=== PATIENT | female | born 1985 | race Caucasian/White ===

== ENCOUNTER 2023-09-24 07:11 | Day surgery (SDC) | payer OTHER, SELFPAY ==
[2023-08-27 08:25] VITALS: BMI 31.3
[2023-09-11 09:36] VITALS: BMI 32.4
[2023-09-24 07:47] VITALS: BP 124/99; PULSE 83; RESP 16; TEMP 36.5; O2SAT 100
[2023-09-24] MEDS: LACTATED RINGERS 1,000 ML 150 ML IV CONT (08:05)
--- NOTE | 2023-09-24 08:16 | P.PNAN_ITS ---
Anes - Initial Pre Proc Eval Procedure: Operation Date: 09/24/23 09:00 Proposed Procedures p Colonoscopy - Nicolás Ferris MD Date/Time: 09/24/23 08:16 Surgeon: Nicolás Ferris MD Pre Op Diagnosis: Family History of Colon Cancer Patient Data Age: 37 Gender: F Height: 1.7 m Weight: 96.3 kg Last Vital Signs Temp 36.5 C 09/24/23 07:47 Pulse 83 09/24/23 07:47 Resp 16 09/24/23 07:47 BP 124/99 H 09/24/23 07:47 Pulse Ox 100 09/24/23 07:47 O2 Del Method Room Air 09/24/23 07:47 Allergies Allergy/AdvReac Type Severity Reaction Status Date / Time No Known Allergies Allergy Verified 09/24/23 07:41 Home Medications Medication Instructions Recorded Confirmed Type ibuprofen 800 mg tablet 800 mg PO Q6H PRN pain #20 tabs 08/17/19 09/24/23 Rx Patient hx anesthesia problems: none Family hx anesthesia problems: none Results Review: All pre-operative results and documents have been reviewed as part of the pre-op erative evaluation. [facility] Past Medical History Medical History (Updated 09/24/23 @ 08:16 by Florentin May MD) Obesity Surgical History Surgical History (Updated 09/24/23 @ 08:16 by Florentin May MD) H/O cervical spine surgery History of section History of tubal ligation Social History Social History Smoking status: Never smoker Second hand tobacco smoke exposure: No Alcohol intake: current Drinks per week: 5 Substance use: never Substance use type: does not use Living arrangements: with family Gender identity (if verbalized by the patient): Female Spiritual care concerns: No Anes - Eval Final PreProcedure Day of Procedure 09/24/23 08:16 Patient weight: obese Heart: regular rate and rhythm Lungs: clear to auscultation Airway: Mallampati scale class II Neurological: alert and oriented Last oral intake: >/= 8 hours ASA classification: II Emergent: no Anesthetic plan: proceed Anesthesia type and monitoring: general GIVS and standard monitoring Results Review: All pre-operative results and documents have been reviewed as part of the pre- operative evaluation. Informed Consent: The patient's anesthetic plan and its attendant risks and benefits were discussed with the patient/family/POA. Questions were solicited and answers provided to the satisfaction of the patient/family/POA.
--- NOTE | 2023-09-24 08:19 | P.HP_ITS ---
History of Present Illness History of Present Illness Consent: Risks, benefits, and alternatives have been discussed and questions answered. Patient agrees to proceed with procedure. Chief complaint: Family History of Colon Cancer Narrative: Kassandra Vitale is a 37 year old female presents for screening colonoscopy. Patient has current weight appetite and bowel movements are normal. She denies abdominal pain. Has had no bleeding. Family history is significant that her mother had colon cancer. Patient presents today for screening exam. Review of Systems Review of Systems: Review of systems noncontributory. [facility] Past Medical History Medical History (Updated 09/24/23 @ 08:21 by Nicolás Ferris MD) Obesity Surgical History Surgical History (Updated 09/24/23 @ 08:16 by Florentin May MD) H/O cervical spine surgery History of section History of tubal ligation Social History Social History Smoking status: Never smoker Second hand tobacco smoke exposure: No Alcohol intake: current Drinks per week: 5 Substance use: never Substance use type: does not use Living arrangements: with family Gender identity (if verbalized by the patient): Female Spiritual care concerns: No Meds Home Medications and Allergies Home Medications Medication Instructions Recorded Confirmed Type ibuprofen 800 mg tablet 800 mg PO Q6H PRN pain #20 tabs 08/17/19 09/24/23 Rx Allergies Allergy/AdvReac Type Severity Reaction Status Date / Time No Known Allergies Allergy Verified 09/24/23 07:41 Vital Signs Vital Signs - 24 hr 09/24/23 07:47 Temperature 97.7 F Pulse Rate 83 Respiratory Rate 16 Blood Pressure 124/99 H Pulse Oximetry 100 Oxygen Delivery Room Air Exam Narrative: Physical exam reveals patient to be alert. Vital signs stable. HEENT exam is unremarkable. Patient is anicteric. Lungs are clear to auscultation and percussion. Heart is without murmur or extra sounds. Abdomen bowel sounds are present soft nontender with no hepatosplenomegaly. Digital external rectal exam is normal. Assessment and Plan Assessment and plan (1) Family history of colon cancer in mother: Code(s): Z80.0 - Family history of malignant neoplasm of digestive organs Status: Acute Assessment and Plan: Patient's mother has had colon cancer. Plan for surveillance colonoscopy now in consider this at 5 year intervals.
[2023-09-24 09:19] VITALS: BP 97/45; PULSE 73; RESP 16; O2SAT 100
[2023-09-24 09:29] VITALS: BP 91/51; PULSE 74; RESP 18; O2SAT 100
[2023-09-24 09:39] VITALS: BP 113/73; PULSE 60; RESP 20; O2SAT 100
== END 2023-09-24 09:45 | disposition home or self-care (01) ==
PROVIDERS: PCP Family Medicine; Visit Provider Internal Medicine Gastroenterology
PROC: 0DJD8ZZ Inspection of Lower Intestinal Tract, Via Natural or Artificial Opening Endoscopic (ICD-10-PCS; CPT 45378; principal; 2023-09-24 09:00)
DX: Z80.0 Family history of malignant neoplasm of digestive organs (principal)
CPT/HCPCS: 45378

== ENCOUNTER 2024-04-18 12:21 | Emergency (ER) | payer OTHER, SELFPAY ==
--- NOTE | 2024-04-18 12:29 | ED.SKABFB ---
HPI - Skin/Abscess/Foreign Bdy General Chief complaint: Skin/Abscess/Foreign Body Stated complaint: Rash Time Seen by Provider: 04/18/24 12:31 Source: patient, RN notes reviewed and old records reviewed Mode of arrival: ambulatory Limitations: no limitations History of Present Illness HPI narrative: 38-year-old female presents to the [facility] with a rash to the lower left abdomen for 2 weeks. States that she did a weight loss medication injection which she has been using for 8 weeks. She also visited [place]. Eight recalled annmarie seeds. After eating the Annmarie seeds she did have episode of diarrhea which resolved itself within 3 days. Patient has a mildly raised red itchy area. Not hot to touch. No vesicular areas Patient was concern, at 1st requested blood work states that her primary care provider has recently and is looking for new 1. Discussed that we do not do blood work and we cannot order it. Onset (ago): week(s) (2) Treatments prior to arrival: OTC topical medication and Benadryl Related Data Home Medications Medication Instructions Recorded Confirmed thyroid (pork) 30 mg tablet 30 mg PO DAILY 04/18/24 04/18/24 ([place] Thyroid) Allergies Allergy/AdvReac Type Severity Reaction Status Date / Time No Known Allergies Allergy Verified 04/18/24 12:29 Review of Systems Review of Systems: All systems reviewed & are unremarkable except as noted in HPI and below Constitutional: Constitutional: Reports no additional constitutional complaints Eyes: Eyes: Reports no additional eye complaints ENT: Reports system reviewed and no additional complaints, except as documented Cardiovascular: Cardiovascular: Reports no additional cardiovascular complaints, Denies chest pain and Denies dyspnea Respiratory: Respiratory: Reports no additional respiratory complaints, Denies chest congestion, Denies cough and Denies dyspnea Gastrointestinal: Gastrointestinal: Reports no additional gastrointestinal complaints, Denies abdominal pain, Denies nausea and Denies vomiting Musculoskeletal: Musculoskeletal: Reports no additional musculoskeletal complaints Integumentary/Breasts: Skin/Breast: Reports as per HPI and Reports erythema Neurologic: Reports system reviewed and no additional complaints, except as documented Psychiatric: Psychiatric: Reports no additional psychiatric complaints Allergic/Immunologic: Allergic/Immunologic: Reports no additional allergic/immunologic complaints PMFSH Past Medical History Medical History Obesity Surgical History Surgical History H/O cervical spine surgery History of section History of tubal ligation Social History Social History Smoking status: Never smoker Second hand tobacco smoke exposure: No Alcohol intake: current Drinks per week: 5 Substance use: never Substance use type: does not use Living arrangements: with family Gender identity (if verbalized by the patient): Female Spiritual care concerns: No Comments At the time of my signature, I reviewed and agree with the nursing past medical, surgical, social, and family history. There is no relevant family history pertinent to the patient complaint. Exam Const: General: cooperative, healthy appearing, comfortable, no acute distress, well developed, alert and well nourished Nutritional Appearance: well nourished Orientation/consciousness: patient oriented x3 Limitations: no limitations HENMT: Head: normal to inspection Ears: hearing grossly normal bilaterally and external ears normal Face/Nose/Sinus: Normal external nose present, Normal nares present, Normal nasal mucous membranes and turbinates present, normal facial exam and face symmetric Face and sinus: normal facial exam and face symmetric Eyes: General: appearance nor
[2024-04-18 12:30] VITALS: BP 126/94; PULSE 83; RESP 16; TEMP 36.5; O2SAT 100
== END 2024-04-18 12:48 | disposition home or self-care (01) ==
PROVIDERS: Emergency Provider Nurse Practitioner; PCP Family Medicine
DX: L30.9 Dermatitis, unspecified (principal); E66.9 Obesity, unspecified; Z68.31 Body mass index [BMI] 31.0-31.9, adult
CPT/HCPCS: 99213; G0463

== ENCOUNTER 2024-11-18 08:48 | Outpatient (CLI) | payer OTHER, SELFPAY ==
--- NOTE | ~2024-11-18 | US_ITS ---
US pelvic complete w TV Ordering provider: Tricia Sanchez APRN History: . N92.1 - Excessive and frequent menstruation with irregula... . Comparison: None. Technique: Transabdominal and endovaginal ultrasound of the pelvis (Doppler ultrasound interrogation techniques used as needed for this exam.) FINDINGS: CERVIX: Normal. UTERUS: Measures 9.4x 6.7x 5 cm in length which is within normal limits and is anteverted. No myomet rial masses. scar is noted. ENDOMETRIUM: Normal in thickness measuring 17 mm. (Note: the premenopausal endometrium may measure up to 16 mm when in the secretory phase.) No endometrial masses, cysts or fluid. CUL DE SAC: No free fluid. RIGHT OVARY: Normal in size measuring 2.5x 1.4x 2.8 cm. Normal echotexture. Doppler vascular flow pre sent. LEFT OVARY: Normal in size measuring 2.5x 2.4x 1.9 cm Normal echotexture. Doppler vascular flow prese nt. ADNEXA: Normal. No mass. IMPRESSION: Thickened endometrium. Clinical correlation with the menstrual stage is advised. If warranted further evaluation advised. Otherwise,normal pelvic ultrasound. Reviewed, dictated and finalized at location A. [facility] SEWER IMPRESSION: Thickened endometrium. Clinical correlation with the menstrual stage is advised . If warranted further evaluation advised. Otherwise,normal pelvic ultrasound.
--- OUTSIDE RECORDS SUMMARY | 2024-11-18 09:12 | XMS_ITS | Referral Summary ---
Author Organization [facility] Address [address] [place] [address] Care Team Providers Care Clam Picker Name Role Phone Unavailable Primary Care Provider Unavailabl e Source Comments [facility],non-owned Affiliates and Associated Physician Practices is amultiple site organization consisting of ambulatory clinics and hospital sitesin [place], [place], [place] and [place]. This disclosure is being madepursuant to the Care Everywhere program and may not contain all information available regarding this patient. Last updated 18.[facility] Encounters Date Type Department Care Team Description 10/07/2024 Travel 10/07/2024 1:30 PM DOCK CLERK Office Visit [facility] - Urology [address] [place] [address] [address] [place] [address] Jose Maria Keith MD Kidney stones (Primary Dx); Family history of Bernard syndrome from Last 3 Months Allergies No known active allergies Medications * Be aware that medications may not be up to date on this document. Alwaysverify current medications with the patient. Medication Sig Dispensed Refills Start Date End Date Status cephalexin (Keflex) 500 MG capsule Take 1 (one) capsule by mouth 2 times daily Active Social History Tobacco Use Types Packs/Day Years Used Date Smoking Tobacco: Never Smokeless Tobacco: Never Alcohol Use Standard Drinks/Week Comments Not Currently 0 (1 standard drink = 0.6 oz pur e alcohol) Sex and Gender Information Value Date Recorded Sex Assigned at Not on file Gender Identity Not on file Sexual Orientation Not on file Last Filed Vital Signs Vital Sign Reading Time Taken Comments Blood Pressure 143/101 10/07/2024 1:17 PM DOCK CLERK Pulse 94 10/07/2024 1:16 PM DOCK CLERK Temperature 36.7 C (98.1 F) 10/07/2024 1:16 PM DOCK CLERK Respiratory Rate 18 10/07/2024 1:16 PM DOCK CLERK Oxygen Saturation 100% 10/07/2024 1:16 PM DOCK CLERK Inhaled Oxygen Concentration - - Weight 90.2 kg (198 lb 12.8 oz) 10/07/2024 1:16 PM DOCK CLERK Height 170.2 cm (5' 7 ) 10/07/2024 1:16 PM DOCK CLERK Body Mass Index 31.14 10/07/2024 1:16 PM DOCK CLERK Plan of Treatment Upcoming Encounters Date Type Department Care Team (Late st Contact Info) Description 09/29/2025 8:15 AM DOCK CLERK Office Visit [facility] - Urology [address] [place] [id number] Jose Maria Keith MD [address] [place] [id number] Procedures Procedure Name Priority Date/Time Associated Diagnosis Comments URINALYSIS AUTO - POINT OF CARE (AMB) [facility] Routine 10/07/2024 1:24 PM DOCK CLERK Kidney stones from Last 3 Months Results * URINALYSIS AUTO - POINT OF CARE (AMB) [facility] (10/07/2024 1:24 PM DOCK CLERK) Glucose UA neg [facility] [address] Bilirubin UA POCT neg [facility] [address] Ketones UA POCT neg [facility] [address] Specific [place] UA 1.[address] [facility] [address] Blood Urine POCT neg [facility] [address] pH UA 7.0 [facility] [address] Protein UA neg [facility] [address] Urobilinogen UA -3.5 umol/L [facility] [address] Nitrite UA neg [facility] [address] WBC UA +-15 Angel/ul [facility] [address] Urine URINE / Unknown 10/07/2024 1 :24 PM DOCK CLERK Jose Maria Keith MD LAB - POINT OF CAR E ORDERABLES [facility] [address] [place] [address], [facility] [phone] from Last 3 Months Advance Directives Documents on File Type Date Recorded Patient Inspector Barrel Expl anation Adv Directive/Living Will/POA 01/07/2017
--- OUTSIDE RECORDS SUMMARY | 2024-11-18 09:12 | XMS_ITS | Clinical Summary ---
Author Organization [facility] Care Team Providers Care Strapper Operator Name Role Phone Unavailable Primary Care Provider Unavailabl e Allergies No known active allergies Medications No known medications Active Problems Problem Noted Date Diagnosed Date Elevated antinuclear antibody (MARCELLUS) level Depression Anxiety Immunizations Immunization Administration Dates Next Due TD VACCINE 09/14/2009 Social History Tobacco Use Types Packs/Day Years Used Date Smoking Tobacco: Never Assessed Comments Unknown Sex and Gender Information Value Date Recorded Sex Assigned at Not on file Legal Sex Female 9:00 PM CDT Gender Identity Not on file Sexual Orientation Not on file Plan of Treatment Health Maintenance Due Date Last Done Comments Hepatitis C Virus (HCV) Screening 1984 TdaP Immunization 1984 Hepatitis B Immunization (1 of 3 - 19+ 3-dose series) 12/10/2003 Pap Smear 2005 Cervical Cancer Screening (CCS) 2014 HPV/Cotest 2014 Influenza Immunization (#1) 2024 SARS-COV-2 Immunization ( season) 2024 12/20/2020, 11/22/2020 Respiratory Syncytial Virus (RSV) Immunization (Adult) (1 - 1-dose 75+ series) 12/10/2059 DTaP/Tdap/Td Immunization Discontinued 09/14/2009 Meningococcal Immunization (ACWY) Aged Out No longer eligible based on patient's age to complete this topic Pneumococcal Immunization Combined Aged Out No longer eligible based on patient's age to complete this topic Rotavirus Immunization Aged Out No lo nger eligible based on patient's age to complete this topic
--- OUTSIDE RECORDS SUMMARY | 2024-11-18 09:13 | XMS_ITS | Data Portability ---
Author Organization [facility] [employer], Main Office Address [address] [place] [address] Care Team Providers Care Hospice Volunteer Name Role Phone BLU VILLAFANA Primary Care Provider BLU VILLAFANA Referring Provider Assessment No assessment recorded. Plan of Treatment Reminders Order Date Submit Date Provider Last Modified By Organization Details Last Modified Time Details Appointments None recorded. Lab pap, IG + CT/NG + reflex HR HPV 2022 [facility]23 [facility] (Lab), [address] [place], [address], 3 08:17:14 lipid panel, serum [address] [facility] (Lab), [address] [place], [address], 3 13:02:28 CMP, serum or plasma [address] [facility] (Lab), [address] [place], [address], 3 13:02:33 Referral gynecologis t referral - Last PAP smear about 3 years ago . Please call patient to schedule an appointment . Thank you 2023 024 [email or web address] [facility] [place], [address], [address], [place], [address], 4 08:44:56 gastroenter ologist referral 2022 023 Frederick Jasso MD, [address], [address], [place], [address], 3 17:45:19 Procedures None recorded. Surgeries None recorded. Imaging None recorded. Medication Orders Wegovy 0.25 mg/0.5 mL subcutaneou s pen injector 2023 024 [id number], [address], [place], [id number], 4 16:04:09 phentermine 37.5 mg tablet 2023 024 [facility][id number], [address], [place], [id number], 4 16:21:22 prednisone 20 mg tablet 2023 024 [facility] #[id number], [address], [place], [id number], 4 15:58:06 valacyclovi r 1 gram tablet 2022 023 [facility] #[id number], [address], [place], [id number], 3 09:20:10 Patient TargetsNo targets recorded. Patient Instructions Encounter Date Encounter Id Patient Instructions Last Modified By Organization Details Last Modified Time 05/31/2024 [id number] recheck BP on ow n ; reviewed salty foods to avoid [email or web address] Not available 06/17/2024 15:11:40 Reason for Referral Service Desk Team Lead Referral for Family history of cancer of colon Referring Physician: Blu Nicholson, Family Medicine, Encounter Date: 03/12/2023 [employer] Referral for Sc reening for malignant neoplasm of cervix Last PAP smear about 3 years ago . Please call patient to schedule an appointment. Thank you Referring Physician: Young Abarca, Family Medicine, Encounter Date: 05/31/2024 Results Created Date Observation Date Name Description Value Unit Range Abnormal Flag Note LastModifiedBy Organization Detail LastModifiedTime 04/10/20 21 04/10/2021 urina lysis , dipst ick Leukocytes (reference range: negative enrique/ l) Trace Not Available [address] , [address], [place], [address], 04/10/2021 15:53:43 04/10/20 21 04/10/2021 urina lysis , dipst ick Nitrite (reference rage: negative mg/dl) negati ve Not Available [address] , [address], [place], [address], 04/10/2021 15:53:43 04/10/20 21 04/10/2021 urina lysis , dipst ick Urobilinogen (reference range: 0.2-1 mg/dl) 0.2 Not Available [address] , [address], [place], [address], 04/10/2021 15:53:43 04/10/20 21 04/10/2021 urina lysis , dipst ick Protein (reference range: negative mg/dl) Negati ve Not Available [address] , [address], [place], [address], 04/10/2021 15:53:43 04/10/20 21 04/10/2021 urina lysis , dipst ick pH (reference range: 5-7) 7.0 Not Available [address] , [address], [place], [address], 04/10/2021 15:53:43 04/10/20 21 04/10/2021 urina lysis , dipst ick Blood (reference range: negative Viraj/ l) Negati ve Not Available [address] , [address], [place], [address], 04/10/2021 15:53:43 04/10/20 21 04/10/2021 urina lysis , dipst ick Specific [place] (reference range: 1.005-1.030) 1.020 Not Available [address] , [address], [place], [address], 04/10/2021 15:53:43 04/10/20 21 04/10/2021 urina lysis , dipst ick Ketone (reference range: negative mg/dl) Negati ve Not Available [address] , [address], [place], [address], 04/10/2021 15:53:43 04/10/20 21 04/10/2021 urina lysis , dipst ick Bilirubin (reference range: negative mg/dl) Negati ve Not Available [address] , [address], [place], [address], 04/10/2021 15:53:43 04/10/20 21 04/10/2021 urina lysis , dipst ick Glucose (reference range: negative mg/dl) Negati ve Not Available [address] , [address], [place], [address], 04/10/2021 15:53:43 04/10/20 21 04/10/2021 urina lysis , dipst ick Appearance Clear Not Available [address] , [address], [place], [address], 04/10/2021 15:53:43 04/10/20 21 04/10/2021 urina lysis , dipst ick Color Yellow Not Available [address] , [address], [place], [address], 04/10/2021 15:53:43 08/26/20 21 08/26/2021 urina lysis , dipst ick Leukocytes (reference range: negative enrique/ l) Small Not Available [address] , [address], [place], [address], 08/26/2021 15:08:22 08/26/20 21 08/26/2021 urina lysis , dipst ick Nitrite (reference rage: negative mg/dl) positi ve Not Available [address] , [address], [place], [address], 08/26/2021 15:08:22 08/26/20 21 08/26/2021 urina lysis , dipst ick Urobilinogen (reference range: 0.2-1 mg/dl) 0.2 Not Available [address] , [address], [place], [address], 08/26/2021 15:08:22 08/26/20 21 08/26/2021 urina lysis , dipst ick Protein (reference range: negative mg/dl) Negati ve Not Available [address] , [address], [place], [address], 08/26/2021 15:08:22 08/26/20 21 08/26/2021 urina lysis , dipst ick pH (reference range: 5-7) 7.0 Not Available Z_hr [address] , [address], [place], [address], 08/26/2021 15:08:22 08/26/20 21 08/26/2021 urina lysis , dipst ick Blood (reference range: negative Viraj/ l) Modera te Not Available [address] , [address], [place], [address], 08/26/2021 15:08:22 08/26/20 21 08/26/2021 urina lysis , dipst ick Specific [place] (reference range: 1.005-1.030) 1.015 Not Available [address] , [address], [place], [address], 08/26/2021 15:08:22 08/26/20 21 08/26/2021 urina lysis , dipst ick Ketone (reference range: negative mg/dl) Negati ve Not Available [address] , [address], [place], [address], 08/26/2021 15:08:22 08/26/20 21 08/26/2021 urina lysis , dipst ick Bilirubin (reference range: negative mg/dl) Negati ve Not Available [address] , [address], [place], [address], 08/26/2021 15:08:22 08/26/20 21 08/26/2021 urina lysis , dipst ick Glucose (reference range: negative mg/dl) Negati ve Not Available [address] , [address], [place], [address], 08/26/2021 15:08:22 08/26/20 21 08/26/2021 urina lysis , dipst ick Appearance Clear Not Available [facility] [address], [place], [address], 08/26/2021 15:08:22 08/26/20 21 08/26/2021 urina lysis , dipst ick Color Yellow Not Available [facility], [place], [address], 08/26/2021 15:08:22 03/12/20 23 03/12/2023 LIPID PANEL cholesterol 241 mg/dL 140-19 9 high NIH TAL NSUS RECOM MENDA TION FOR MERRITT STERO L: ADULT CHILD LOW RISK: <200 <170 BORDE RLINE : <200- 239 ----- HIGH RISK: >240 >200 Not Available [facility] (Lab) [address] [place], [address], 03/12/2023 13:02:28 03/12/20 23 03/12/2023 LIPID PANEL triglyceride s 199 mg/dL 0-150 high NIH TAL NSUS REPOR T RECOM MENDA TION FOR TRIGL YCERI SHANE: ADULT CHILD LOW RISK: <150 ----- BODER LINE: 150-1 99 ----- HIGH RISK: >200 ----- Not Available [facility] (Lab) [address] [place], [address], 03/12/2023 13:02:28 03/12/20 23 03/12/2023 LIPID PANEL HDL cholesterol 71 mg/dL 40- Not Available [facility] (Lab) [address] [place], [address], 03/12/2023 13:02:28 03/12/20 23 03/12/2023 LIPID PANEL LDL cholesterol, calculated 130 mg/dL 0-130 NIH TAL NSUS REPOR T RECOM MENDA TIONS FOR LDL: ADULT CHILD LOW RISK <130 <110 (OPTI MAL LDL) <100 ----- JESE RLINE : 130-1 59 ----- HIGH RISK: >160 >130 A TRIGL YCERI DE RESUL T >400 INVAL IDATE S THE CALCU LATIO N FOR LDL FRACT IONAT ION - THE LDL RESUL T WILL NOT BE REPOR MARYCRUZ. Not Available [facility] (Lab) [address] [place], [address], 03/12/2023 13:02:28 03/12/20 23 03/12/2023 COMPR EHENS PATRIC METAB OLIC PANEL sodium 138 mmol/ L 137-14 5 Not Available [facility] (Lab) [address] [place], [address], 03/12/2023 13:02:33 03/12/20 23 03/12/2023 COMPR EHENS PATRIC METAB OLIC PANEL potassium 4.2 mmol/ L 3.5-5. 1 Not Available [facility] (Lab) [address] [place], [address], 03/12/2023 13:02:33 03/12/20 23 03/12/2023 COMPR EHENS PATRIC METAB OLIC PANEL chloride 101 mmol/ L 98-107 Not Available [facility] (Lab) [address] [place], [address], 03/12/2023 13:02:33 03/12/20 23 03/12/2023 COMPR EHENS PATRIC METAB OLIC PANEL carbon dioxide 26 mmol/ L 22-30 Not Available [facility] (Lab) [address] [place], [address], 03/12/2023 13:02:33 03/12/20 23 03/12/2023 COMPR EHENS PATRIC METAB OLIC PANEL anion gap 15.2 mmol/ L 14-22 Not Available [facility] (Lab) [address] [place], [address], 03/12/2023 13:02:33 03/12/20 23 03/12/2023 COMPR EHENS PATRIC METAB OLIC PANEL glucose 96 mg/dL 70-99 Not Available [facility] (Lab) [address] [place], [address], 03/12/2023 13:02:33 03/12/20 23 03/12/2023 COMPR EHENS PATRIC METAB OLIC PANEL BUN 10 mg/dL 8-19 Not Available [facility] (Lab) [address] [place], [address], 03/12/2023 13:02:33 03/12/20 23 03/12/2023 COMPR EHENS PATRIC METAB OLIC PANEL creatinine 0.59 mg/dL 0.66-1 .25 low Not Available [facility] (Lab) [address] [place], [address], 03/12/2023 13:02:33 03/12/20 23 03/12/2023 COMPR EHENS PATRIC METAB OLIC PANEL GFR >60 Refer ence Range : [place] ge GFR Healt hy Adult : >60 mL/mi n/1.7 3 m2 Chron ic Kidne y Disea se: 15-60 mL/mi n/1.7 3 m2 Kidne y Failu re: <15/m L/min /1.73 m2 www.n iddk. nih.g ov The MDRD study equat ion has not been valid ated in child forrest <18 years of age; pregn ant women ; the elder ly >85 years of age; or in some racia l or ethni c subgr oups, such as [facility] nics. Outsi de the valid ated yanet eters , estim ated GFR is less accur ate, requi ring clini kane judgm ent on a case- by-ca se basis . Clini kane inter preta tion for other races and ages must be made by the clini cheri. The MDRD study equat ion has not been valid ated for the evalu ation of serum creat inine relat ed to nutri giana l statu s or medic ation usage . For perso ns <18 years of age, a pedia tric GFR calcu lator is avail able on the [facility] websi te: https ://pablo w.concha kc.o casey/pr ofess ional s/kdo qi/gf r_cal culat or Not Available [facility] (Lab) [address] [place], [address], 03/12/2023 13:02:33 03/12/20 23 03/12/2023 COMPR EHENS PATRIC METAB OLIC PANEL alkaline phosphatase 54 U/L 38-126 Not Available [facility] (Lab) [address] [place], [address], 03/12/2023 13:02:33 03/12/20 23 03/12/2023 COMPR EHENS PATRIC METAB OLIC PANEL alanine aminotransfe rase 34 U/L 0-35 Not Available [facility] (Lab) [address] [place], [address], 03/12/2023 13:02:33 03/12/20 23 03/12/2023 COMPR EHENS PATRIC METAB OLIC PANEL aspartate aminotransfe rase 29 U/L 15-37 Not Available [facility] (Lab) [address] [place], [address], 03/12/2023 13:02:33 03/12/20 23 03/12/2023 COMPR EHENS PATRIC METAB OLIC PANEL bilirubin, total 0.80 mg/dL 0.20-1 .30 Not Available [facility] (Lab) [address] [place], [address], 03/12/2023 13:02:33 03/12/20 23 03/12/2023 COMPR EHENS PATRIC METAB OLIC PANEL calcium 9.7 mg/dL 8.4-10 .2 Not Available [facility] (Lab) [address] [place], [address], 03/12/2023 13:02:33 03/12/20 23 03/12/2023 COMPR EHENS PATRIC METAB OLIC PANEL total protein 7.4 g/dL 6.3-8. 2 Not Available [facility] (Lab) [address] [place], [address], 03/12/2023 13:02:33 03/12/20 23 03/12/2023 COMPR EHENS PATRIC METAB OLIC PANEL albumin 4.3 g/dL 3.4-5. 0 Not Available [facility] (Lab) [address] [place], [address], 03/12/2023 13:02:33 03/12/20 23 03/12/2023 COMPR EHENS PATRIC METAB OLIC PANEL globulin 3.1 g/dL 2.6-4. 2 Not Available [facility] (Lab) [address] [place], [address], 03/12/2023 13:02:33 03/12/20 23 03/12/2023 COMPR EHENS PATRIC METAB OLIC PANEL A/G ratio 1.4 ratio 1.0-2. 0 Not Available [facility] (Lab) [address] [place], [address], 03/12/2023 13:02:33 04/18/20 21 US, head + neck, soft tissu e [facility] [address] [place] [address] [phone] Patien t Name: VALERY GUSMAN Access ion #: [id number] Sex: F : 1985 5 Locati on: RA2 Attend ing Physic zunilda: BLU MARIE Orderi ng Physic zunilda: BLU MARIE Exam Date: 04/18/20 21 2:11 PM Exam Name: US NECK/H EAD SOFT TISSUE Admitt ing Diagno sis(es ): RADIOL OGY REPORT - FINAL EXAM: US NECK/H EAD SOFT TISSUE HISTOR Y: cervic al lympha deniti s 35-yea r-old female with right subman dibula r enlarg ed lymph nodes. COMPAR LEONELA: None availa ble. TECHNI QUE: Ultras ound examin ation of the subman dibula r region was perfor med. FINDIN GS: There is a mildly enlarg ed right subman dibula r lymph node with fatty hilum measur ing long axis 15 mm, short axis 9 mm, and single wall thickn ess 4 mm. There is a mildly enlarg ed left subman dibula r lymph node with fatty hilum measur ing long axis 20 mm, short axis 7 mm, in single wall thickn ess 3 mm. No abnorm al fluid collec tions or suspic ious masses are identi fied in the Page 1 of 2 [facility] Pati t Name: VALERY GUSMAN Access ion #: [id number] Sex: F : 1985 4 Exam Date: 04/18/20 2:11 PM Exam Name: US NECK/H EAD SOFT TISSUE Admitt ing Diagno sis(es ): subman dibula r region s. IMPRES JAVIER: Mildly enlarg ed benign -appea ring lymph nodes in the bilate ral subman dibula r region s as detail ed above. Create d and electr onical ly signed by: Nicolas simmons MD Signed Date: 04/18/20 3:00 PM (CT) Dictat ed by: Nicolas simmons MD (CT) (CT) Page 2 of 2 [id number] [facility] (Imaging) [address] [place], [address], 11/12/2022 18:41:04 04/18/20 21 04/18/2021 US, neck, soft tissu e No observ ation record ed. [id number] [facility] [address] [place], [address], 11/12/2022 18:41:04 Result Notes None recorded. 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 2022 Not Available [facility] 3 06:26:06 Hyperlipidemi a 06918470 Active 2022 Not Available [facility] 3 06:26:06 Contact dermatitis 84698751 Active 2023 KAROLINE Lopez [address], [address], [place], [address] , [employer] 4 15:53:36 Screening for malignant neoplasm of cervix Active 2023 KAROLINE Lopez [address], [address], [place], [address] , [employer] 4 15:56:28 Obesity 941201925 Active 2023 KAROLINE Lopez [address], [address], [place], [address] , [employer] 4 15:59:00 Adult health examination Active 2023 KAROLINE Lopez [address], [address], [place], [address] , [employer] 4 15:10:27 Overweight 504366991 Active 2023 KAROLINE Lopez [address], [address], [place], [address] , [employer] 4 15:10:40 Problem Notes None recorded. Procedures Surgical History Date Name Laterality Status Provider Name and Address Organization Details Recorded Time 09/24/19 24 Colonoscopy completed Zak Murray RN [facility] [employer] 09/24/2023 10:30:55 03/12/20 23 Family Practice Trigger Point Injection completed Blu Nicholson MD [address] [facility], [address], [place], [address], [place] [facility] [employer] 03/12/2023 09:28:51 completed Not Available [employer] 0 11/12/2022 18:36:43 Neck Surgeries completed Bing edwards RN [facility] [employer] 05/31/2024 15:44:46 Imaging Results Imaging Date Name Status LastModified by Organiz ation Details LastModified Time 04/18/2021 US, head + neck, soft tissue completed [id number] [facility] (Imaging) [address] [place], [address], 11/12/2022 18:41:04 04/18/2021 US, neck, soft tissue completed [id number] [facility] [address] [place], [address], 11/12/2022 18:41:04 Procedure Notes None recorded. Medical Equipment None Reported. Allergies No known drug allergies Medications Name Sig Start Date Stop Date Status Note LastModified by Organization Details LastModified Time cyclobenzap rine 10 mg tablet TAKE 1 TABLET BY MOUTH EVERY NIGHT AT BEDTIME NEEDED FOR MUSCLE SPASMS 05/31 completed Not Available Not Available Not Available doxycycline hyclate 100 mg capsule 12/01 completed Not Available Not Available Not Available ibuprofen 800 mg tablet TAKE 1 TABLET BY MOUTH THREE TIMES DAILY FOR 7 DAYS NEEDED FOR PAIN active Not Available Not Available No t Available alprazolam 1 mg tablet active Not Available Not Available Not Available tizanidine 4 mg tablet TAKE ONE TABLET BY MOUTH EVERY NIGHT AT BEDTIME NEEDED FOR SPASM active Not Available Not Available No t Available valacyclovi r 1 gram tablet Take 2 tablets every 12 hours by oral route for 1 day. active Not Available Not Available No t Available hydrocodone 5 mg-acetamin ophen 325 mg tablet TAKE 1 TO 2 TABLETS BY MOUTH EVERY 6 HOURS NEEDED FOR PAIN FOR 7 DAYS 05/31 completed Not Available Not Available Not Available Medrol (Delbert) 4 mg tablets in a dose pack Use as directed 05/31 completed Not Available Not Available Not Available prednisone 20 mg tablet Take 2 tabs PO twice daily for 2 days; 1 tab PO twice daily for 5 days; 1/2 tab PO twice daily for 2 days; 1/2 tab PO once for 1 day. TAKE 2ND DOSE EVERYDAY AT NOON-10 DAY COURSE active Not Available Not Available No t Available phentermine 37.5 mg tablet TAKE 1 TABLET BY MOUTH EVERY DAY 2023 active Not Available Not Available Not Avai lable levofloxaci n 250 mg tablet Take 1 tablet every day by oral route for 5 days. active Not Available Not Available No t Available ciprofloxac in 500 mg tablet Take 1 tablet every 12 hours by oral route for 5 days. 06/03 completed Not Available Not Available Not Available tramadol 50 mg tablet TAKE 1 TABLET BY MOUTH EVERY 6 HOURS active Not Available Not Available No t Available acetaminoph en 500 mg tablet TAKE 2 TABLETS BY MOUTH THREE TIMES DAILY NEEDED FOR FOR PAIN active Not Available Not Available No t Available meloxicam 7.5 mg tablet TAKE 1 TABLET BY MOUTH TWICE DAILY NEEDED FOR PAIN 05/31 completed Not Available Not Available Not Available amoxicillin 875 mg tablet 09/22 completed Not Available Not Available Not Available meclizine 25 mg tablet Take 1 tablet 3 times a day by oral route as needed. 10/04 completed Not Available Not Available Not Available benzonatate 100 mg capsule 12/01 completed Not Available Not Available Not Available cephalexin 500 mg capsule TAKE 1 CAPSULE BY MOUTH EVERY 12 HOURS active Not Available Not Available No t Available clotrimazol e-betametha sone 1 %-0.05 % topical cream APPLY TOPICALLY TO THE AFFECTED AREA TWICE DAILY FOR 2 WEEKS active Not Available Not Available No t Available Juana Diaz Thyroid 30 mg tablet TAKE 1 TABLET BY MOUTH EVERY MORNING 30 MINUTES BEFORE A MEAL active Not Available Not Available No t Available ondansetron 4 mg disintegrat ing tablet active Not Available Not Available N ot Available fluticasone propionate 50 mcg/actuati on nasal spray,suspe nsion 06/03 completed Not Available Not Available Not Available Mononessa (28) 0.25 mg-35 mcg tablet TK ONE T PO D active Not Available Not Available No t Available Tri-Sprinte c (28) 0.18 mg(7)/0.215 mg(7)/0.25 mg(7)-35 mcg tablet TAKE 1 TABLET BY MOUTH EVERY DAY active Not Available Not Available No t Available sodium,pota ssium,mag sulfates 17.5 gram-3.13 gram-1.6 gram oral soln FOLLOW [employer] WRITTEN INSTRUCTI ONS 05/31 completed Not Available Not Available Not Available Wegovy 0.25 mg/0.5 mL subcutaneou s pen injector Inject 0.25 mg every week by subcutane ous route for 30 days. 2023 active Not Available Not Available Not Avai lable Vitals Date Recorded Body mass index (BMI) Body height Oxygen saturation Oxygen saturation in Arterial blood by Pulse oximetry Heart rate Body temperature Body weight Systolic blood pressure Diastolic blood pressure Provider Name and Address Organization Details Last Updated DateTime 1 31.6 kg/m2 170.18 cm 98 % 98 % 109 /min 97.6 [degF] 45734.6 6 g 146 mm[Hg] 96 mm[Hg] Not Available [facility] 3 18:36:57 Date Recorded Body mass index (BMI) Body height Oxygen saturation Oxygen saturation in Arterial blood by Pulse oximetry Heart rate Body temperature Body weight Systolic blood pressure Diastolic blood pressure Provider Name and Address Organization Details Last Updated DateTime 1 30.5 kg/m2 170.18 cm 99 % 99 % 100 /min 97 [degF] 73976.5 1 g 130 mm[Hg] 80 mm[Hg] Not Available [facility] 3 18:36:57 Date Recorded Body mass index (BMI) Body height Oxygen saturation Oxygen saturation in Arterial blood by Pulse oximetry Heart rate Body temperature Body weight Systolic blood pressure Diastolic blood pressure Provider Name and Address Organization Details Last Updated DateTime 2 30.9 kg/m2 170.18 cm 99 % 99 % 85 /min 96.3 [degF] 50546.7 g 140 mm[Hg] 90 mm[Hg] Not Available [facility] 3 18:36:57 Date Recorded Body height Body mass index (BMI) Body weight Body temperature Heart rate Oxygen saturation Oxygen saturation in Arterial blood by Pulse oximetry Systolic blood pressure Diastolic blood pressure Provider Name and Address Organization Details Last Updated DateTime 3 170.18 cm 31.6 kg/m2 24166.6 6 g 97.9 [degF] 102 /min 99 % 99 % 116 mm[Hg] 78 mm[Hg] GWENDOLYN Timmons [facility] [employer] [facility] 3 09:01:55 Date Recorded Body height Body mass index (BMI) Body weight Body temperature Heart rate Oxygen saturation Oxygen saturation in Arterial blood by Pulse oximetry Systolic blood pressure Diastolic blood pressure Provider Name and Address Organization Details Last Updated DateTime 4 170.18 cm 30.1 kg/m2 11773.7 4 g 97.6 [degF] 78 /min 99 % 99 % 122 mm[Hg] 94 mm[Hg] Bing Jones RN [facility] [employer] 4 15:46:18 Social History Question Answer Notes LastModified by Organizat ion Details LastModified Time Tobacco Smoking Status Never Smoker Not Available [facility] 11/12/2022 18:36:30 What Is Your Level Of Alcohol Consumption? Occasional [id number] Information not available 11/12/2022 In The 14 Days Before Symptom Onset, Have You Had Close Contact With A Laboratory-confirm ed COVID-19 While That Case Was Ill? No [id number] Information not available 11/12/2022 In The 14 Days Before Symptom Onset, Have You Had Close Contact With A Person Who Is Under Investigation For COVID-19 While That Person Was Ill? No [id number] Information not available 11/12/2022 Sex: Female Functional Status None recorded. Mental Status None recorded. Family History Relationship Description Onset Age of this Age Resolved Age Notes LastModified by Organization Details LastModified Time Mother Family history of malignant neoplasm [id number] Not available 05/31 15:36:59 Mother Disorder of thyroid gland [id number] Not available 11/12/2022 18:36:44 Father Disorder of thyroid gland [id number] Not available 11/12/2022 18:36:44 Medical History No medical history recorded. Gynecological HistoryNo gynecological history recorded. Obstetrics History GPAL:G 0 P 0 0 0 0 Past Encounters Encounter ID Performer Location Encounter Start Date Encounter Closed Date Diagnosis/Indication Diagnosis SNOMED-CT Code Diagnosis ICD10 Code Diagnosis Note [id number] [facility] Family [facility] Dandre mcleod [address] [place] [address] 02/21/2021 00:00:00 02/21/2021 09:33:47 [id number] [facility] Dandre mcleod [facility] [place] [address] 04/10/2021 00:00:00 04/11/2021 06:10:23 [id number] [facility] Dandre mcleod [facility] [place] [address] 08/26/2021 00:00:00 08/26/2021 20:14:12 [id number] [facility] Dandre mcleod [facility] [place] [address] 11/18/2021 00:00:00 11/18/2021 15:59:04 [id number] Blu Nicholson MD [facility] Dandre mcleod [address] [place] [address] [place] [address] 03/12/2023 08:56:25 03/12/2023 09:33:54 Gynecologic examination [id number] Z01.419 Herpes labialis 6614231 B00.1 Hyperlipidemia 00146446 E78.5 Screening for malignant neoplasm of colon 695242842 Z12.11 Family his tory of cancer of colon 963753514 Z80.0 [id number] KAROLINE Lopez [facility] Dandre mcleod [address] [place] [address] [place] [address] 05/31/2024 15:34:13 05/31/2024 16:05:57 Contact dermatitis 91125744 L25.9 Screening for malignant neoplasm of cervix 244430384 Z12.4 Obesity 937103693 E66.9 Overweight 695809391 E66 .3 Adult heal th examination 327754753 Z00.00 Hyperlipidemia 14646712 E78.5 Health Concerns Section Related Observation LastModified by Organization Detai ls LastModified Time None Recorded Concern Status LastModified by Organization Details LastModified Time None Recorded Advance Directives Directive None Recorded Payers Encounter Date Sequence Insurance Name Policy Number Policy Naranjo Covered Member ID Naranjo Member ID Guarantor Name 03/12/2023 1 [employer] - CHOICE PLUS [id number] Valery Gusman [id number] Valerybecky Gusman 05/31/2024 1 [employer] - CHOICE PLUS [id number] Valery Gusman [id number] Valery Gusman Notes Date Note Type Note Provider Name and Address Organization Details Recorded Time 03/12/2023 text/html Here today for wwe. Last one was 03/04 and was ok. No hx of abnormal paps.Has neck pain and has fever blister. Had neck surgery 2 years ago. PT did help with shoulder pain. Uses CBD and this helps.Mother of colon cancer. She is due for colonoscopy. Pt is needing BW. Blu Nicholson MD [address], [place], [address], [facility] [employer] 03/12/2023 09:32:50 05/31/2024 text/html itchy rash right lower abdomen , no new soaps , detergents , fabric softeners , no exposure to wool KAROLINE Lopez [address], [place], [address], [employer] 06/17/2024 15:12:21 OBGyn Episode No OBEpisode recorded.
--- OUTSIDE RECORDS SUMMARY | 2024-11-18 09:13 | XMS_ITS | Patient Health Summary ---
Author Organization [facility] Address [address] [facility] [place] [address] Care Team Providers Care Career Education Teacher Name Role Phone Unavailable Primary Care Provider Unavailabl e Note from [facility],non-owned Affiliates and Associated Physician Practices is amultiple site organization consisting of ambulatory clinics and hospital sitesin [place], [place], [place] and [place]. This disclosure is being madepursuant to the Care Everywhere program and may not contain all information available regarding this patient. Last updated 18.[facility] Allergies No known active allergies Medications * Be aware that medications may not be up to date on this document. Alwaysverify current medications with the patient. * cephalexin (Keflex) 500 MG capsule Take 1 (one) capsule by mouth 2 times daily Social History Tobacco Use Types Packs/Day Years [...] Comments Blood Pressure 143/101 10/07/2024 1:17 PM BINDER TECHNICIAN Pulse 94 10/07/2024 1:16 PM BINDER TECHNICIAN Temperature 36.7 C (98.1 F) 10/07/2024 1:16 PM BINDER TECHNICIAN Respiratory Rate 18 10/07/2024 1:16 PM BINDER TECHNICIAN Oxygen Saturation 100% 10/07/2024 1:16 PM BINDER TECHNICIAN Inhaled Oxygen Concentration - - Weight 90.2 kg (198 lb 12.8 oz) 10/07/2024 1:16 PM BINDER TECHNICIAN Height 170.2 cm (5' 7 ) 10/07/2024 1:16 PM BINDER TECHNICIAN Body Mass Index 31.14 10/07/2024 1:16 PM BINDER TECHNICIAN Procedures * URINALYSIS AUTO - POINT OF CARE (AMB) [facility](Performed 10/07/2024) Performed for Kidney stones * XR WRIST BILAT 2VW(Performed 01/07/2017) Performed for Multiple joint pain * XR HAND BILAT 2VW(Performed 01/07/2017) Performed for Multiple joint pain * XR FOOT BILAT 2VW(Performed 01/07/2017) Performed for Multiple joint pain * XR ANKLE BILAT 2VW(Performed 01/07/2017) Performed for Multiple joint pain Results * URINALYSIS AUTO - POINT OF CARE (AMB) [facility] (10/07/2024 1:24 PM BINDER TECHNICIAN) Glucose UA neg [facility] [address] Bilirubin UA POCT neg [facility] [address] Ketones UA POCT neg [facility] [address] Specific [place] UA 1.[address] [facility] [address] Blood Urine POCT neg [facility] [address] pH UA 7.0 [facility] [address] Protein UA neg [facility] [address] Urobilinogen UA -3.5 umol/L [facility] [address] Nitrite UA neg [facility] [address] WBC UA +-15 Angel/ul [facility] [address] Urine URINE / Unknown 10/07/2024 1 :24 PM BINDER TECHNICIAN Jose Maria Keith MD LAB - POINT OF CAR E ORDERABLES [facility] [address] [place] [address], [facility] [[email or web address]] [phone] * XR HANDS BILATERAL 2 VIEWS (01/07/2017 2:37 PM CDT) Anatomical Region Laterality Modality Wrist / Hand, Upper Extremity Ra diographic Imaging 01/07/2017 2:39 PM CDT Impressions 01/07/2017 2:42 PM CDT Minimal left first metatarsophalangeal joint osteoarthritis. Otherwise, normal examinations of the hands, wrists, ankles, and feet Narrative 01/07/2017 2:42 PM CDT Examination: 1. Bilateral hands 2 views each 2. Bilateral wrists 2 views each 3. Bilateral ankles 2 views each 4. Bilateral feet 2 views each History: Joint pain Findings: Ankles and feet: 2 nonweightbearing views of both ankles and 2 nonweightbearing views of both feet are submitted without comparison. The ankle mortise, talar dome, and tibiofibular syndesmosis are intact bilaterally. There is no acute fracture or dislocation. There is a bone island in the left calcaneus. An os trigonum is present on the left. There is minimal left first metatarsophalangeal joint osteoarthritis. There are no erosions. Hands and wrists: 2 views of both hands and 2 views of both wrists are submitted without comparison. The alignment is normal. There is no fracture. The joint spaces are normal. There are no erosions. Procedure Note Vega Cross MD - 01/07/2017 Examination: 1. Bilateral hands 2 views each 2. Bilateral wrists 2 views each 3. Bilateral ankles 2 views each 4. Bilateral feet 2 views each History: Joint pain Findings: Ankles and feet: 2 nonweightbearing views of both ankles and 2 nonweightbearing views of both feet are submitted without comparison. The ankle mortise, talar dome, and tibiofibular syndesmosis are intact bilaterally. There is no acute fracture or dislocation. There is a bone island in the left calcaneus. An os trigonum is present on the left. There is minimal left first metatarsophalangeal joint osteoarthritis. There are no erosions. Hands and wrists: 2 views of both hands and 2 views of both wrists are submitted without comparison. The alignment is normal. There is no fracture. The joint spaces are normal. There are no erosions. IMPRESSION Minimal left first metatarsophalangeal joint osteoarthritis. Otherwise, normal examinations of the hands, wrists, ankles, and feet Mily Puga MD DIAGNOSTIC IMAGING O RDERABLES * XR FOOT BILAT 2 VIEWS (01/07/2017 2:37 PM CDT) Anatomical Region Laterality Modality Lower Extremity, Ankle / Foot Ra diographic Imaging 01/07/2017 2:39 PM CDT Impressions 01/07/2017 2:42 PM CDT Minimal left first metatarsophalangeal joint osteoarthritis. Otherwise, normal examinations of the hands, wrists, ankles, and feet Narrative 01/07/2017 2:42 PM CDT Examination: 1. Bilateral hands 2 views each 2. Bilateral wrists 2 views each 3. Bilateral ankles 2 views each 4. Bilateral feet 2 views each History: Joint pain Findings: Ankles and feet: 2 nonweightbearing views of both ankles and 2 nonweightbearing views of both feet are submitted without comparison. The ankle mortise, talar dome, and tibiofibular syndesmosis are intact bilaterally. There is no acute fracture or dislocation. There is a bone island in the left calcaneus. An os trigonum is present on the left. There is minimal left first metatarsophalangeal joint osteoarthritis. There are no erosions. Hands and wrists: 2 views of both hands and 2 views of both wrists are submitted without comparison. The alignment is normal. There is no fracture. The joint spaces are normal. There are no erosions. Procedure Note Vega Cross MD - 01/07/2017 Examination: 1. Bilateral hands 2 views each 2. Bilateral wrists 2 views each 3. Bilateral ankles 2 views each 4. Bilateral feet 2 views each History: Joint pain Findings: Ankles and feet: 2 nonweightbearing views of both ankles and 2 nonweightbearing views of both feet are submitted without comparison. The ankle mortise, talar dome, and tibiofibular syndesmosis are intact bilaterally. There is no acute fracture or dislocation. There is a bone island in the left calcaneus. An os trigonum is present on the left. There is minimal left first metatarsophalangeal joint osteoarthritis. There are no erosions. Hands and wrists: 2 views of both hands and 2 views of both wrists are submitted without comparison. The alignment is normal. There is no fracture. The joint spaces are normal. There are no erosions. IMPRESSION Minimal left first metatarsophalangeal joint osteoarthritis. Otherwise, normal examinations of the hands, wrists, ankles, and feet Mily Puga MD DIAGNOSTIC IMAGING O RDERABLES * XR WRIST BILAT 2 VIEWS (01/07/2017 2:37 PM CDT) Anatomical Region Laterality Modality Wrist / Hand, Upper Extremity Ra diographic Imaging 01/07/2017 2:39 PM CDT Impressions 01/07/2017 2:42 PM CDT Minimal left first metatarsophalangeal joint osteoarthritis. Otherwise, normal examinations of the hands, wrists, ankles, and feet Narrative 01/07/2017 2:42 PM CDT Examination: 1. Bilateral hands 2 views each 2. Bilateral wrists 2 views each 3. Bilateral ankles 2 views each 4. Bilateral feet 2 views each History: Joint pain Findings: Ankles and feet: 2 nonweightbearing views of both ankles and 2 nonweightbearing views of both feet are submitted without comparison. The ankle mortise, talar dome, and tibiofibular syndesmosis are intact bilaterally. There is no acute fracture or dislocation. There is a bone island in the left calcaneus. An os trigonum is present on the left. There is minimal left first metatarsophalangeal joint osteoarthritis. There are no erosions. Hands and wrists: 2 views of both hands and 2 views of both wrists are submitted without comparison. The alignment is normal. There is no fracture. The joint spaces are normal. There are no erosions. Procedure Note Vega Cross MD - 01/07/2017 Examination: 1. Bilateral hands 2 views each 2. Bilateral wrists 2 views each 3. Bilateral ankles 2 views each 4. Bilateral feet 2 views each History: Joint pain Findings: Ankles and feet: 2 nonweightbearing views of both ankles and 2 nonweightbearing views of both feet are submitted without comparison. The ankle mortise, talar dome, and tibiofibular syndesmosis are intact bilaterally. There is no acute fracture or dislocation. There is a bone island in the left calcaneus. An os trigonum is present on the left. There is minimal left first metatarsophalangeal joint osteoarthritis. There are no erosions. Hands and wrists: 2 views of both hands and 2 views of both wrists are submitted without comparison. The alignment is normal. There is no fracture. The joint spaces are normal. There are no erosions. IMPRESSION Minimal left first metatarsophalangeal joint osteoarthritis. Otherwise, normal examinations of the hands, wrists, ankles, and feet Mily Puga MD DIAGNOSTIC IMAGING O RDERABLES * XR ANKLE BILAT 2 VIEWS (01/07/2017 2:37 PM CDT) Anatomical Region Laterality Modality Ankle / Foot, Lower Extremity Ra diographic Imaging 01/07/2017 2:39 PM CDT Impressions 01/07/2017 2:42 PM CDT Minimal left first metatarsophalangeal joint osteoarthritis. Otherwise, normal examinations of the hands, wrists, ankles, and feet Narrative 01/07/2017 2:42 PM CDT Examination: 1. Bilateral hands 2 views each 2. Bilateral wrists 2 views each 3. Bilateral ankles 2 views each 4. Bilateral feet 2 views each History: Joint pain Findings: Ankles and feet: 2 nonweightbearing views of both ankles and 2 nonweightbearing views of both feet are submitted without comparison. The ankle mortise, talar dome, and tibiofibular syndesmosis are intact bilaterally. There is no acute fracture or dislocation. There is a bone island in the left calcaneus. An os trigonum is present on the left. There is minimal left first metatarsophalangeal joint osteoarthritis. There are no erosions. Hands and wrists: 2 views of both hands and 2 views of both wrists are submitted without comparison. The alignment is normal. There is no fracture. The joint spaces are normal. There are no erosions. Procedure Note Vega Cross MD - 01/07/2017 Examination: 1. Bilateral hands 2 views each 2. Bilateral wrists 2 views each 3. Bilateral ankles 2 views each 4. Bilateral feet 2 views each History: Joint pain Findings: Ankles and feet: 2 nonweightbearing views of both ankles and 2 nonweightbearing views of both feet are submitted without comparison. The ankle mortise, talar dome, and tibiofibular syndesmosis are intact bilaterally. There is no acute fracture or dislocation. There is a bone island in the left calcaneus. An os trigonum is present on the left. There is minimal left first metatarsophalangeal joint osteoarthritis. There are no erosions. Hands and wrists: 2 views of both hands and 2 views of both wrists are submitted without comparison. The alignment is normal. There is no fracture. The joint spaces are normal. There are no erosions. IMPRESSION Minimal left first metatarsophalangeal joint osteoarthritis. Otherwise, normal examinations of the hands, wrists, ankles, and feet Mily Puga MD DIAGNOSTIC IMAGING O RDERABLES
--- OUTSIDE RECORDS SUMMARY | 2024-11-18 09:13 | XMS_ITS | Clinical Summary ---
Author Organization [facility] Address [address] [place] [address] Care Team Providers Care Enterprise Sales Person Name Role Phone Unavailable Primary Care Provider Unavailabl e Source Comments [facility],non-owned Affiliates and Associated Physician Practices is amultiple site organization consisting of ambulatory clinics and hospital sitesin [place], [place], [place] and [place]. This disclosure is being madepursuant to the Care Everywhere program and may not contain all information available regarding this patient. Last updated 18.[employer] [facility] Allergies No known active allergies Medications * Be aware that medications may not be up to date on this document. Alwaysverify current medications with the patient. Medication Sig Dispensed Refills Start Date End Date Status cephalexin (Keflex) 500 MG capsule Take 1 (one) capsule by mouth 2 times daily Active Encounters Date Type Department Care Team Description 10/07/2024 1:30 PM AWNING SPREADER Office Visit [facility] - Urology [address] [place] [address] [address] [place] [address] Jose Maria Keith MD Kidney stones (Primary Dx); Family history of Bernard syndrome 10/07/2024 Travel from Last 3 Months Social History Tobacco Use Types Packs/Day Years [...] Comments Blood Pressure 143/101 10/07/2024 1:17 PM AWNING SPREADER Pulse 94 10/07/2024 1:16 PM AWNING SPREADER Temperature 36.7 C (98.1 F) 10/07/2024 1:16 PM AWNING SPREADER Respiratory Rate 18 10/07/2024 1:16 PM AWNING SPREADER Oxygen Saturation 100% 10/07/2024 1:16 PM AWNING SPREADER Inhaled Oxygen Concentration - - Weight 90.2 kg (198 lb 12.8 oz) 10/07/2024 1:16 PM AWNING SPREADER Height 170.2 cm (5' 7 ) 10/07/2024 1:16 PM AWNING SPREADER Body Mass Index 31.14 10/07/2024 1:16 PM AWNING SPREADER Plan of Treatment Upcoming Encounters Date Type Department Care Team (Late st Contact Info) Description 09/29/2025 8:15 AM AWNING SPREADER Office Visit [facility] - Urology [address] [place] [address] [address] [place] [address] Jose Maria Keith MD [address] [address] Health Maintenance Due Date Last Done Comments PAP SMEAR 1984 HIV SCREENING 12/10/1999 HEPATITIS C SCREENING 12/05/2002 DTAP/TDAP/TD VACCINES (1 - Tdap) 12/10/2003 HEPATITIS B VACCINE (1 of 3 - 19+ 3-dose series) 12/10/2003 COVID-19 VACCINE ( - 2023-2 5 season) 2024 INFLUENZA VACCINE (#1) 2024 DEPRESSION SCREENING 09/14/2024 ZOSTER VACCINE (1 of 2) 2034 HIB VACCINE Aged Out No longer eligi ble based on patient's age to complete this topic HPV VACCINE Aged Out No longer eligi ble based on patient's age to complete this topic MENINGOCOCCAL (Group B) VACCINE Aged Out No longer eligible based on patient's age to complete this topic MENINGOCOCCAL VACCINE Aged Out No jose guadalupe john eligible based on patient's age to complete this topic PNEUMOCOCCAL VACCINE Aged Out No long er eligible based on patient's age to complete this topic Procedures Procedure Name Priority Date/Time Associated Diagnosis Comments URINALYSIS AUTO - POINT OF CARE (AMB) [facility] Routine 10/07/2024 1:24 PM AWNING SPREADER Kidney stones from Last 3 Months Results * URINALYSIS AUTO - POINT OF CARE (AMB) [facility] (10/07/2024 1:24 PM AWNING SPREADER) Glucose UA neg [facility] [address] Bilirubin UA POCT neg [facility] [address] Ketones UA POCT neg [facility] [address] Specific [place] UA 1.[address] [facility] [address] Blood Urine POCT neg [facility] [address] pH UA 7.0 [facility] [address] Protein UA neg [facility] [address] Urobilinogen UA -3.5 umol/L [facility] [address] Nitrite UA neg [facility] [address] WBC UA +-15 Angel/ul [facility] [address] Urine URINE / Unknown 10/07/2024 1 :24 PM AWNING SPREADER Jose Maria Keith MD LAB - POINT OF CAR E ORDERABLES [facility] [address] [place] [address], [facility] [phone] from Last 3 Months Advance Directives Documents on File Type Date Recorded Patient Bone Drier Expl anation Adv Directive/Living Will/POA 01/07/2017
--- OUTSIDE RECORDS SUMMARY | 2024-11-18 09:13 | XMS_ITS | Patient Health Record ---
Author Organization [facility] Address [address] [place] [address] Care Team Providers Care Boilermaker Welder Name Role Phone Jose Wallace Unavailable [phone] REASON FOR REFERRAL No Information PLAN OF TREATMENT No Information Insurance Providers Payer Name Payer Address Payer Phone Subscriber Number Group Number Insured Name Patient Relationship to Insured Coverage Start Date Coverage End Date [employer] [address] [place] [address] [id number] [employer], Other
== END 2024-11-18 08:49 | disposition home or self-care (01) ==
PROVIDERS: Visit Provider Nurse Practitioner Obstetrics & Gynecology
DX: R93.89 Abnormal findings on diagnostic imaging of other specified body structures (principal); N92.1 Excessive and frequent menstruation with irregular cycle
CPT/HCPCS: 76830; 76856

== ENCOUNTER 2025-01-13 00:49 | Day surgery (SDC) | payer OTHER, SELFPAY ==
--- NOTE | 2025-01-03 10:32 | PC.NURSE ---
Report to the Outpatient Waiting Room, entrance under the green pavilion located off [facility], at time _0800_ on date __01/13/25_. Planned Procedure Time: _1000.? Time changes happen often and if your time is changed the preop area will call you the afternoon before. - You and your visitor will be asked to self-screen and do not enter if you have any COVID symptoms. Please call surgeon if you need to reschedule. - A mask is optional within the hospital at this time. Patients may have clear liquids (water, carbonated beverages, clear teas, apple juice) until 3 hours prior to surgery with a maximum of 20 ounces. - No food from midnight until time of surgery and no smoking, or chewing tobacco (or any form of nicotine). No chewing gum, candy or mints. - Infants may have breast milk until 4 hours before surgery, infant formula 6 hours prior to surgery. - Children will be allowed to drink immediately following surgery.? If applicable, please bring a bottle or sippy cup to assist with drinking. Juice, water, soda, and popsicles are readily available.? For infants on formula, please bring formula the day of surgery.? Pacifiers are allowed. Take only the following medications with a SIP of water on the morning of surgery: NONE DO NOT STOP ANY OF YOUR OTHER PRESCRIPTION MEDICATIONS PRIOR TO SURGERY EXCEPT THE FOLLOWING Hold all vitamins and supplements for 3 days per anesthesiologist. Medications to discontinue per physician NONE Date to take last dose Please no make-up, nail lao, hairspray, perfume, deodorant, or body powder the day of surgery.? No jewelry (including any body piercings) or valuables the day of surgery, leave them at home.? Please take a shower or bath the night before, or the morning of, surgery with an antibacterial soap.? Wear comfortable, loose fitting clothing.? Children are encouraged to wear pajamas. - Jewelry must be removed prior to entering the operating room.? Rings and piercings that are not removed may be cut off. - The hospital will not accept responsibility for valuables.? - Please leave all valuables, including medications, at home the day of surgery. If you are going home after surgery, a licensed delivery truck driver heavy must drive you home.? - NO public transportation without another adult if you receive anesthesia. - We recommend that an adult stay with you for 24 hours following discharge. - We also recommend that you do not drive, make important decision, drink alcoholic beverages, or take any drugs that were not prescribed by your health care provider for at least 24 hours after your discharge time. For Pediatric surgeries, we recommend two adults accompany the child home. Follow any additional instructions given to you from your surgeon. Telephone instructions given to __PATIENT__and asked if any additional questions and then verbalized understanding. Patient advised to call surgeon office or pre surgery nurse liaison [phone] if any additional questions.
--- OUTSIDE RECORDS SUMMARY | 2025-01-13 00:52 | XMS_ITS | Clinical Summary ---
Author Organization [facility] Address [address] [place] [address] Care Team Providers Care Planer Hand Name Role Phone Unavailable Primary Care Provider Unavailabl e Source Comments [facility],non-owned Affiliates and Associated Physician Practices is amultiple site organization consisting of ambulatory clinics and hospital sitesin [place], [place], [place] and [place]. This disclosure is being madepursuant to the Care Everywhere program and may not contain all information available regarding this patient. Last updated 18.[facility] Allergies No known active allergies Medications * Be aware that medications may not be up to date on this document. Alwaysverify current medications with the patient. 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 Gender Identity Not on file Sexual Orientation Not on file Last Filed Vital Signs Vital Sign Reading Time Taken Comments Blood Pressure 143/101 10/07/2024 1:17 PM ELECTRONIC SALES AND SERVICE TECHNICIAN Pulse 94 10/07/2024 1:16 PM ELECTRONIC SALES AND SERVICE TECHNICIAN Temperature 36.7 C (98.1 F) 10/07/2024 1:16 PM ELECTRONIC SALES AND SERVICE TECHNICIAN Respiratory Rate 18 10/07/2024 1:16 PM ELECTRONIC SALES AND SERVICE TECHNICIAN Oxygen Saturation 100% 10/07/2024 1:16 PM ELECTRONIC SALES AND SERVICE TECHNICIAN Inhaled Oxygen Concentration - - Weight 90.2 kg (198 lb 12.8 oz) 10/07/2024 1:16 PM ELECTRONIC SALES AND SERVICE TECHNICIAN Height 170.2 cm (5' 7 ) 10/07/2024 1:16 PM ELECTRONIC SALES AND SERVICE TECHNICIAN Body Mass Index 31.14 10/07/2024 1:16 PM ELECTRONIC SALES AND SERVICE TECHNICIAN Plan of Treatment Upcoming Encounters Date Type Department Care Team (Late st Contact Info) Description 09/29/2025 8:15 AM ELECTRONIC SALES AND SERVICE TECHNICIAN Office Visit [facility] - Urology [address] [place] [address] [address] [place] [address] Jose Maria Keith MD [address] [place] [address] Health Maintenance Due Date Last Done Comments LIPID TESTING 1984 MAMMOGRAM 1984 PAP SMEAR 1984 HIV SCREENING 12/10/1999 HEPATITIS C SCREENING 12/05/2002 DTAP/TDAP/TD VACCINES (1 - Tdap) 12/10/2003 HEPATITIS B VACCINE (1 of 3 - 19+ 3-dose series) 12/10/2003 COVID-19 VACCINE (1 - 2023-2 5 season) 2024 DEPRESSION SCREENING 09/14/2024 INFLUENZA VACCINE (Season Ended) 2025 ZOSTER VACCINE (1 of 2) 2034 HIB VACCINE Aged Out No longer eligi ble based on patient's age to complete this topic HPV VACCINE Aged Out No longer eligi ble based on patient's age to complete this topic MENINGOCOCCAL (Group B) VACC INE SHARED DECISION-MAKING Aged Out No longer eligibl e based on patient's age to complete this topic MENINGOCOCCAL GROUPS A/C/Y/W VACCINE Aged Out No longer eligible b ased on patient's age to complete this topic PNEUMOCOCCAL VACCINE Aged Out No long er eligible based on patient's age to complete this topic Insurance [facility] Advance Directives Documents on File Type Date 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
--- OUTSIDE RECORDS SUMMARY | 2025-01-13 00:52 | XMS_ITS | Continuity of Care Document ---
Author Organization [facility] [facility] Address [address] [place] [address] [address] [place] [address] Phone Care Team Providers Care Consulting Systems Engineer Name Role Phone Joseph PT,MPT,ATC, Erick Unavailable Unavai lable Procedures Procedure Date PT Re-evaluation Therapeutic Activities Hot or Cold Pack Therapeutic Activities Neuromuscular Re-Ed Therapeutic Exercise Therapeutic Activities Neuromuscular Re-Ed Therapeutic Exercise Therapeutic Activities Neuromuscular Re-Ed Therapeutic Exercise Therapeutic Activities Neuromuscular Re-Ed Therapeutic Exercise Hot or Cold Pack Therapeutic Activities Neuromuscular Re-Ed Therapeutic Exercise Manual Therapy Therapeutic Activities Neuromuscular Re-Ed Therapeutic Exercise Manual Therapy Therapeutic Activities Neuromuscular Re-Ed Therapeutic Exercise Manual Therapy Therapeutic Activities Neuromuscular Re-Ed Therapeutic Exercise Manual Therapy Therapeutic Activities Neuromuscular Re-Ed Therapeutic Exercise Manual Therapy Hot or Cold Pack PT Re-evaluation Therapeutic Activities Neuromuscular Re-Ed Therapeutic Exercise Manual Therapy Hot or Cold Pack Therapeutic Activities Neuromuscular Re-Ed Therapeutic Exercise Manual Therapy Therapeutic Activities Neuromuscular Re-Ed Therapeutic Exercise Manual Therapy Therapeutic Activities Neuromuscular Re-Ed Therapeutic Exercise Manual Therapy Hot or Cold Pack Therapeutic Activities Neuromuscular Re-Ed Therapeutic Exercise Manual Therapy PT Evaluation Moderate Complexity Therapeutic Activities Neuromuscular Re-Ed Therapeutic Exercise Advance Directives Directive Yes / No Effective Date File Name No Information Encounters Encounter Description Practice Location Reason(s) For Visit Diagnoses Date Provider Providers Copied on Encounter [facility], [place], [place], [id number], tel:[phone] [place] No Information 3 Jake Porras [place], . Referring Provider: Rahat Bowser Jr [address], [place], [address]. tel:[phone] [facility] [address], [place], [place], [id number], tel:[phone] [place] No Information 3 Jake Porras [facility]. Referring Provider: Rahat Bowser Jr, [address], [place], [address]. tel:[phone] [facility], [place], [place], [id number], [place] tel:[phone] [place] No Information 3 Joseph Erick. , [place], [place]. Referring Provider: Rahat Bowser Jr, [address], [place], [address]. tel:[phone] [facility], [address], [place], [place], [id number], [place] tel:[phone] [place] No Information 3 Joseph Erick. , [place], [place]. Referring Provider: Rahat Bowser Jr, [address], [place], [address]. tel:[phone] [place] [address], [address], [place], [place], [id number], [place] tel:[phone] [place] No Information 3 Jake Erick. , [place], [place]. Referring Provider: Rahat Bowser Jr, [address], [place], [address]. tel:[phone] [place] [address], [address], [place], [place], [id number], [place] tel:[phone] [place] No Information 3 Jake Erick. , [place], [place]. Referring Provider: Rahat Bowser Jr, [address], [place], [address]. tel:[phone] [facility], [place], [place], [id number], [place] tel:[phone] [place] No Information 3 Jake Erick. , [place], [place]. Referring Provider: Rahat Bowser Jr, [address], [place], [address]. tel:[phone] [facility], [place], [place], [id number], [place] tel:[phone] [place] No Information 3 Jake Erick. , [place], [place]. Referring Provider: Rahat Bowser Jr, [address], [place], [address]. tel:[phone] [facility], [address], [place], [place], [id number], [place] tel:[phone] [place] No Information 3 Jason Ovalle. . Referring Provider: Rahat Bowser Jr, [address], [place], [address]. tel:[phone] [facility], [address], [place], [place], [id number], [place] tel:[phone] [place] No Information 3 Jake Erick. , [place], [place]. Referring Provider: Rahat Bowser Jr, [address], [place], [address]. tel:[phone] [facility], [address], [place], [place], [id number], [place] tel:[phone] [place] No Information 3 Jake Erick. , [place], [place]. Referring Provider: Rahat Bowser Jr, [address], [place], [address]. tel:[phone] [facility], [place], [place], [id number], [place] tel:[phone] [place] No Information 3 Jake Erick. , [place], [place]. Referring Provider: Rahat Bowser Jr, [address], [place], [address]. tel:[phone] [facility] [place] [address], [place], [place], [id number], [place] tel:[phone] [place] No Information 3 Jake Vang[place]. , [place], [place]. Referring Provider: Rahat Bowser Jr, [address], [place], [address]. tel:[phone] [address], [place], [place], [id number], tel:[phone] [place] No Information 3 Jake Porras , [place], [place]. Referring Provider: Rahat Bowser Jr, [address], [place], [address]. tel:[phone] [address], [place], [place], [id number], tel:[phone] [place] No Information 3 Jake Porras , [place], [place]. Referring Provider: Rahat Bowser Jr, [address], [place], [address]. tel:[phone] [address], [place], [place], [id number], tel:[phone] [place] No Information 3 Jake Porras , [place], [place]. Referring Provider: Rahat Bowser Jr, [address], [place], [address]. tel:[phone] Family History Family Member Type Diagnosis Age At Onset No Information Payers Payer name Insurance type Covered constitution [facility] [id number] Social History Type Description Quantity Date Captured Comments Alcohol Use Details Unknown Caffeine Use Details Unknown Tobacco Use Status Current non-smoker Smoking Status Never smoker Non-Smoking Tobacco Use Details : No Details Available : No Details Available Sex Female Chief Complaint And Reason For Visit No Information Reason For Referral Reason For Referral No Information History Of Present Illness Encounter Date Complaint History Of Prese nt Illness No Information Functional Status Date Functional Assessmen t No Information Instructions Date Instruction Additional Infor mation Giving encouragement to exercise Related to Overweight Giving encouragement to exercise Related to Overweight Assessments Type Assessment Date No Information Patient Care Teams Name Effective Dates (start - stop) Status Members No Information
--- OUTSIDE RECORDS SUMMARY | 2025-01-13 00:52 | XMS_ITS | Clinical Summary ---
Author Organization [facility] Care Team Providers Care Health Officer Name Role Phone Unavailable Primary Care Provider [...]
--- OUTSIDE RECORDS SUMMARY | 2025-01-13 00:52 | XMS_ITS | Data Portability ---
Author Organization [facility] Occasion, Main Office Address [address] [place] [address] Care Team Providers Care Silverware Assembler Name Role Phone BLU VILLAFANA Primary Care Provider BLU VILLAFANA Referring Provider Assessment No assessment recorded. Plan of Treatment Reminders Order Date Submit Date Provider Last Modified By Organization Details Last Modified Time Details Appointments None recorded. Lab pap, IG + CT/NG + reflex HR HPV 2022 [facility]23 [email or web address] (Lab), [address] [place], [address], 3 08:17:14 lipid panel, serum 2022 023 [facility] (Lab), [address] [place], [address], 3 13:02:28 CMP, serum or plasma 2022 023 [facility] (Lab), [address] [place], [address], 3 13:02:33 Referral gynecologis t referral - Last PAP smear about 3 years ago . Please call patient to schedule an appointment . Thank you 2023 024 [email or web address] [facility] Corbin Coppola, [address], [address], [place], [address], 4 08:44:56 gastroenter ologist referral 2022 023 [email or web address] Frederick Jasso MD, [address], [address], [place], [address], 3 17:45:19 Procedures None recorded. Surgeries None recorded. Imaging None recorded. Medication Orders Wegovy 0.25 mg/0.5 mL subcutaneou s pen injector 2023 024 [id number], [address], [place], [id number], 4 16:04:09 phentermine 37.5 mg tablet 2023 024 [facility], [address], [place], [id number], 4 16:21:22 prednisone 20 mg tablet 2023 024 [facility] #68952, [address], [place], [id number], 4 15:58:06 valacyclovi r 1 gram tablet 2022 023 [facility] #[id number], [address], [place], [id number], 3 09:20:10 Patient TargetsNo targets recorded. 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 Family history of cancer of colon Referring Physician: Blu Nicholson, Family Medicine, Encounter Date: 03/12/2023 Hose Sprayer Referral for Sc reening for malignant neoplasm [...] range: negative enrique/ l) Trace Not Available [address] , [address], [place], [address], 04/10/2021 15:53:43 04/10/20 21 04/10/2021 urina lysis , dipst ick Nitrite (reference rage: negative mg/dl) negati ve Not Available [address] , [address], [place], [address], 04/10/2021 15:53:43 04/10/20 21 04/10/2021 urina lysis , dipst ick Urobilinogen (reference range: 0.2-1 mg/dl) 0.2 Not Available [address] , [address], [place], [address], 04/10/2021 15:53:43 04/10/20 21 04/10/2021 urina lysis , dipst ick Protein (reference range: negative mg/dl) Negati ve Not Available [address] , [address], [place], [address], 04/10/2021 15:53:43 04/10/20 21 04/10/2021 urina lysis , dipst ick pH (reference range: 5-7) 7.0 Not Available [address] , [address], [place], [address], 04/10/2021 15:53:43 04/10/20 21 04/10/2021 urina lysis , dipst ick Blood (reference range: negative Viraj/ l) Negati ve Not Available [address] , [address], [place], [address], 04/10/2021 15:53:43 04/10/20 21 04/10/2021 urina lysis , dipst ick Specific [place] (reference range: 1.005-1.030) 1.020 Not Available [address] , [address], [place], [address], 04/10/2021 15:53:43 04/10/20 21 04/10/2021 urina lysis , dipst ick Ketone (reference range: negative mg/dl) Negati ve Not Available [address] , [address], [place], [address], 04/10/2021 15:53:43 04/10/20 21 04/10/2021 urina lysis , dipst ick Bilirubin (reference range: negative mg/dl) Negati ve Not Available [address] , [address], [place], [address], 04/10/2021 15:53:43 04/10/20 21 04/10/2021 urina lysis , dipst ick Glucose (reference range: negative mg/dl) Negati ve Not Available [address] , [address], [place], [address], 04/10/2021 15:53:43 04/10/20 21 04/10/2021 urina lysis , dipst ick Appearance Clear Not Available [address] , [address], [place], [address], 04/10/2021 15:53:43 04/10/20 21 04/10/2021 urina lysis , dipst ick Color Yellow Not Available [address] , [address], [place], [address], 04/10/2021 15:53:43 08/26/20 21 08/26/2021 urina lysis , dipst ick Leukocytes (reference range: negative enrique/ l) Small Not Available [address] , [address], [place], [address], 08/26/2021 15:08:22 08/26/20 21 08/26/2021 urina lysis , dipst ick Nitrite (reference rage: negative mg/dl) positi ve Not Available [address] , [address], [place], [address], 08/26/2021 15:08:22 08/26/20 21 08/26/2021 urina lysis , dipst ick Urobilinogen (reference range: 0.2-1 mg/dl) 0.2 Not Available [address] , [address], [place], [address], 08/26/2021 15:08:22 08/26/20 21 08/26/2021 urina lysis , dipst ick Protein (reference range: negative mg/dl) Negati ve Not Available [address] , [address], [place], [address], 08/26/2021 15:08:22 08/26/20 21 08/26/2021 urina lysis , dipst ick pH (reference range: 5-7) 7.0 Not Available Z_hr [address] , [address], [place], [address], 08/26/2021 15:08:22 08/26/20 21 08/26/2021 urina lysis , dipst ick Blood (reference range: negative Viraj/ l) Modera te Not Available [address] , [address], [place], [address], 08/26/2021 15:08:22 08/26/20 21 08/26/2021 urina lysis , dipst ick Specific [place] (reference range: 1.005-1.030) 1.015 Not Available [address] , [address], [place], [address], 08/26/2021 15:08:22 08/26/20 21 08/26/2021 urina lysis , dipst ick Ketone (reference range: negative mg/dl) Negati ve Not Available [address] , [address], [place], [address], 08/26/2021 15:08:22 08/26/20 21 08/26/2021 urina lysis , dipst ick Bilirubin (reference range: negative mg/dl) Negati ve Not Available [address] , [address], [place], [address], 08/26/2021 15:08:22 08/26/20 21 08/26/2021 urina lysis , dipst ick Glucose (reference range: negative mg/dl) Negati ve Not Available [address] , [address], [place], [address], 08/26/2021 15:08:22 08/26/20 21 08/26/2021 urina lysis , dipst ick Appearance Clear Not Available [facility] [address], [place], [address], 08/26/2021 15:08:22 08/26/20 21 08/26/2021 urina lysis , dipst ick Color Yellow Not Available [facility], [place], [address], 08/26/2021 15:08:22 03/12/20 23 03/12/2023 LIPID PANEL cholesterol 241 mg/dL 140-19 9 high NIH TAL NSUS RECOM MENDA TION FOR MERRITT STERO L: ADULT CHILD LOW RISK: <200 <170 BORDE RLINE : <200- 239 ----- HIGH RISK: >240 >200 Not Available [facility] (Lab) [address] [place], [address], 03/12/2023 13:02:28 03/12/20 23 03/12/2023 LIPID PANEL triglyceride s 199 mg/dL 0-150 high NIH TAL NSUS REPOR T RECOM MENDA TION FOR TRIGL YCERI SHANE: ADULT CHILD LOW RISK: <150 ----- BODER LINE: 150-1 99 ----- HIGH RISK: >200 ----- Not Available [facility] (Lab) [address] [place], [address], 03/12/2023 13:02:28 03/12/20 23 03/12/2023 LIPID PANEL HDL cholesterol 71 mg/dL 40- Not Available [facility] (Lab) [address] [place], [address], 03/12/2023 13:02:28 03/12/20 23 03/12/2023 LIPID PANEL [...] WILL NOT BE REPOR MARYCRUZ. Not Available [facility] (Lab) [address] [place], [address], 03/12/2023 13:02:28 03/12/20 23 03/12/2023 COMPR EHENS PATRIC METAB OLIC PANEL sodium 138 mmol/ L 137-14 5 Not Available [facility] (Lab) [address] [place], [address], 03/12/2023 13:02:33 03/12/20 23 03/12/2023 COMPR EHENS PATRIC METAB OLIC PANEL potassium 4.2 mmol/ L 3.5-5. 1 Not Available [facility] (Lab) [address] [place], [address], 03/12/2023 13:02:33 03/12/20 23 03/12/2023 COMPR EHENS PATRIC METAB OLIC PANEL chloride 101 mmol/ L 98-107 Not Available [facility] (Lab) [address] [place], [address], 03/12/2023 13:02:33 03/12/20 23 03/12/2023 COMPR EHENS PATRIC METAB OLIC PANEL carbon dioxide 26 mmol/ L 22-30 Not Available [facility] (Lab) [address] [place], [address], 03/12/2023 13:02:33 03/12/20 23 03/12/2023 COMPR EHENS PATRIC METAB OLIC PANEL anion gap 15.2 mmol/ L 14-22 Not Available [facility] (Lab) [address] [place], [address], 03/12/2023 13:02:33 03/12/20 23 03/12/2023 COMPR EHENS PATRIC METAB OLIC PANEL glucose 96 mg/dL 70-99 Not Available [facility] (Lab) [address] [place], [address], 03/12/2023 13:02:33 03/12/20 23 03/12/2023 COMPR EHENS PATRIC METAB OLIC PANEL BUN 10 mg/dL 8-19 Not Available [facility] (Lab) [address] [place], [address], 03/12/2023 13:02:33 03/12/20 23 03/12/2023 COMPR EHENS PATRIC METAB OLIC PANEL creatinine 0.59 mg/dL 0.66-1 .25 low Not Available [facility] (Lab) [address] [place], [address], 03/12/2023 13:02:33 03/12/20 23 03/12/2023 COMPR EHENS PATRIC METAB OLIC PANEL GFR >60 Refer ence Range : [place] ge GFR Healt hy Adult : >60 [...] or ethni c subgr oups, such as [facility] nics. Outsi de the valid ated [...] calcu lator is avail able on the [facility] websi te: [email or web address] :[email or web address] w.concha kc.o casey/pr ofess ional s/kdo qi/gf r_cal culat or Not Available [facility] (Lab) [address] [place], [address], 03/12/2023 13:02:33 03/12/20 23 03/12/2023 COMPR EHENS PATRIC METAB OLIC PANEL alkaline phosphatase 54 U/L 38-126 Not Available [facility] (Lab) [address] [place], [address], 03/12/2023 13:02:33 03/12/20 23 03/12/2023 COMPR EHENS PATRIC METAB OLIC PANEL alanine aminotransfe rase 34 U/L 0-35 Not Available [facility] (Lab) [address] [place], [address], 03/12/2023 13:02:33 03/12/20 23 03/12/2023 COMPR EHENS PATRIC METAB OLIC PANEL aspartate aminotransfe rase 29 U/L 15-37 Not Available [facility] (Lab) [address] [place], [address], 03/12/2023 13:02:33 03/12/20 23 03/12/2023 COMPR EHENS PATRIC METAB OLIC PANEL bilirubin, total 0.80 mg/dL 0.20-1 .30 Not Available [facility] (Lab) [address] [place], [address], 03/12/2023 13:02:33 03/12/20 23 03/12/2023 COMPR EHENS PATRIC METAB OLIC PANEL calcium 9.7 mg/dL 8.4-10 .2 Not Available [facility] (Lab) [address] [place], [address], 03/12/2023 13:02:33 03/12/20 23 03/12/2023 COMPR EHENS PATRIC METAB OLIC PANEL total protein 7.4 g/dL 6.3-8. 2 Not Available [facility] (Lab) [address] [place], [address], 03/12/2023 13:02:33 03/12/20 23 03/12/2023 COMPR EHENS PATRIC METAB OLIC PANEL albumin 4.3 g/dL 3.4-5. 0 Not Available [facility] (Lab) [address] [place], [address], 03/12/2023 13:02:33 03/12/20 23 03/12/2023 COMPR EHENS PATRIC METAB OLIC PANEL globulin 3.1 g/dL 2.6-4. 2 Not Available [facility] (Lab) [address] [place], [address], 03/12/2023 13:02:33 03/12/20 23 03/12/2023 COMPR EHENS PATRIC METAB OLIC PANEL A/G ratio 1.4 ratio 1.0-2. 0 Not Available [facility] (Lab) [address] [place], [address], 03/12/2023 13:02:33 04/18/20 21 US, head + neck, soft tissu e [facility] [address] [place] [address] [phone] Patien t Name: VALERY GUSMAN Access ion #: [id number] Sex: F : 1985 5 Locati [...] fied in the Page [address] [facility] Pati t Name: VALERY GUSMAN Access ion #: [id number] Sex: F : 1985 5 Exam [...] MD (CT) (CT) Page 2 of 2 [id number] [facility] (Imaging) [address] [place], [address], 11/12/2022 18:41:04 04/18/20 21 04/18/2021 US, neck, soft tissu e No observ ation record ed. [id number] [facility] [address] [place], [address], 11/12/2022 18:41:04 Result Notes None recorded. 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 Active 2022 Not Available [facility] 3 06:26:06 Hyperlipidemi a 93502655 Active 2022 Not Available [facility] 3 06:26:06 Contact dermatitis 82166088 Active 2023 KAROLINE Lopez [address], [address], [place], [address] , [employer] 4 15:53:36 Screening for malignant neoplasm of cervix Active 2023 KAROLINE Lopez [address], [address], [place], [address] , [employer] 4 15:56:28 Obesity 984189263 Active 2023 KAROLINE Lopez [address], [address], [place], [address] , [employer] 4 15:59:00 Adult health examination Active 2023 KAROLINE Lopez [address], [address], [place], [address] , [employer] 4 15:10:27 Overweight 416766429 Active 2023 KAROLINE Lopez [address], [address], [place], [address] , [employer] 4 15:10:40 Problem Notes None recorded. Procedures Surgical History Date Name Laterality Status Provider Name and Address Organization Details Recorded Time 09/24/19 24 Colonoscopy completed Zak Murray RN [facility] Occasion 09/24/2023 10:30:55 03/12/20 23 Family Practice Trigger Point Injection completed Blu Nicholson MD [address] [facility], [address], [place], [address], [place] [facility] Occasion 03/12/2023 09:28:51 completed Not Available [facility] 0 11/12/2022 18:36:43 Neck Surgeries completed Bing edwards RN [facility] Occasion 05/31/2024 15:44:46 Imaging Results Imaging Date Name Status LastModified by Organiz ation Details LastModified Time 04/18/2021 US, head + neck, soft tissue completed [id number] [facility] (Imaging) [address] [place], [address], 11/12/2022 18:41:04 04/18/2021 US, neck, soft tissue completed [id number] [facility] [address] [place], [address], 11/12/2022 18:41:04 Procedure Notes None recorded. Medical [...] Not Available Not Available No t Available [facility] Thyroid 30 mg tablet TAKE 1 TABLET [...] Available [facility] c (28) 0.18 mg(7)/0.215 mg(7)/0.25 mg(7)-0.035 mg tablet TAKE 1 TABLET BY MOUTH [...] % 98 % 109 /min 97.6 [degF] 02365.6 6 g 146 mm[Hg] 96 mm[Hg] Not Available [facility] 3 18:36:57 Date Recorded Body mass index (BMI) Body height Oxygen saturation Oxygen saturation in Arterial blood by Pulse oximetry Heart rate Body temperature Body weight Systolic blood pressure Diastolic blood pressure Provider Name and Address Organization Details Last Updated DateTime 1 30.5 kg/m2 170.18 cm 99 % 99 % 100 /min 97 [degF] 12686.5 1 g 130 mm[Hg] 80 mm[Hg] Not Available [facility] 3 18:36:57 Date Recorded Body mass index (BMI) Body height Oxygen saturation Oxygen saturation in Arterial blood by Pulse oximetry Heart rate Body temperature Body weight Systolic blood pressure Diastolic blood pressure Provider Name and Address Organization Details Last Updated DateTime 2 30.9 kg/m2 170.18 cm 99 % 99 % 85 /min 96.3 [degF] 84154.7 g 140 mm[Hg] 90 mm[Hg] Not Available [facility] 3 18:36:57 Date Recorded Body height Body mass index (BMI) Body weight Body temperature Heart rate Oxygen saturation Oxygen saturation in Arterial blood by Pulse oximetry Systolic blood pressure Diastolic blood pressure Provider Name and Address Organization Details Last Updated DateTime 3 170.18 cm 31.6 kg/m2 46446.6 6 g 97.9 [degF] 102 /min 99 % 99 % 116 mm[Hg] 78 mm[Hg] GWENDOLYN Timmons MT [employer] [facility] Occasion 3 09:01:55 Date Recorded Body height Body mass index (BMI) Body weight Body temperature Heart rate Oxygen saturation Oxygen saturation in Arterial blood by Pulse oximetry Systolic blood pressure Diastolic blood pressure Provider Name and Address Organization Details Last Updated DateTime 4 170.18 cm 30.1 kg/m2 37871.7 4 g 97.6 [degF] 78 /min 99 % 99 % 122 mm[Hg] 94 mm[Hg] Bing Jones RN [facility] Occasion 4 15:46:18 Social History Question Answer Notes LastModified by Organizat ion Details LastModified Time Tobacco Smoking Status Never Smoker Not Available [facility] 11/12/2022 18:36:30 What Is Your Level Of Alcohol Consumption? Occasional [id number] Information not available 11/12/2022 In The 14 Days Before Symptom Onset, Have You Had Close Contact With A Laboratory-confirm ed COVID-19 While That Case Was Ill? No [id number] Information not available 11/12/2022 In The 14 Days Before Symptom Onset, Have You Had Close Contact With A Person Who Is Under Investigation For COVID-19 While That Person Was Ill? No [id number] Information not available 11/12/2022 Sex: Female Functional Status None recorded. Mental Status None recorded. Family History Relationship Description Onset Age of this Age Resolved Age Notes LastModified by Organization Details LastModified Time Mother Family history of malignant neoplasm [email or web address] Not available 05/31 15:36:59 Mother Disorder of thyroid gland [id number] Not available 11/12/2022 18:36:44 Father Disorder of thyroid gland [id number] Not available 11/12/2022 18:36:44 Medical History No medical history recorded. Gynecological HistoryNo gynecological history recorded. Obstetrics History GPAL:G 0 P 0 0 0 0 Past Encounters Encounter ID Performer Location Encounter Start Date Encounter Closed Date Diagnosis/Indication Diagnosis SNOMED-CT Code Diagnosis ICD10 Code Diagnosis Note [id number] Blu Nicholson MD [facility] [place] [address] [place] [address] 02/21/2021 00:00:00 02/21/2021 09:33:47 [id number] Blu Nicholson MD [facility] [place] [address] [place] [address] 04/10/2021 00:00:00 04/11/2021 06:10:23 [id number] Blu Nicholson MD [facility] [place] [address] [place] [address] 08/26/2021 00:00:00 08/26/2021 20:14:12 [id number] Blu Nicholson MD [facility] [place] [address] [place] [address] 11/18/2021 00:00:00 11/18/2021 15:59:04 [id number] Blu Nicholson MD [facility] [place] [address] [place] [address] 03/12/2023 08:56:25 03/12/2023 09:33:54 Gynecologic examination 12877748 Z01.419 Herpes labialis 1861590 B00.1 Hyperlipidemia 50319706 E78.5 Screening for malignant neoplasm of colon 751791487 Z12.11 Family his tory of cancer of colon 631848392 Z80.0 [id number] Jason Ashby MD [facility] [place] [address] [place] [address] 05/31/2024 15:34:13 05/31/2024 16:05:57 Contact dermatitis 98937080 L25.9 Screening for malignant neoplasm of cervix 901348888 Z12.4 Obesity 320872447 E66.9 Overweight 515696322 E66 .3 Adult heal th examination 645656153 Z00.00 Hyperlipidemia 87632361 E78.5 Health Concerns Section Related Observation LastModified by Organization Detai ls LastModified Time None Recorded Concern Status LastModified by Organization Details LastModified Time None Recorded Advance Directives Directive None Recorded Payers Encounter Date Sequence Insurance Name Policy Number Policy Naranoj Covered Member ID Naranjo Member ID Guarantor Name 03/12/2023 1 [facility] - CHOICE PLUS [id number] Valery Gusman [id number] Vaelry Gusman 05/31/2024 1 [employer] - CHOICE PLUS [id number] Valery Gusman [id number] Valery Ugsman Notes Date Note Type Note Provider Name [...] Nicholson MD [address], [address], [place], [address], [employer] 03/12/2023 09:32:50 05/31/2024 text/html itchy rash right lower abdomen , no new soaps , detergents , fabric softeners , no exposure to wool KAROLINE Lopez [address], [address], [place], [address], [employer] 06/17/2024 15:12:21 OBGyn Episode No OBEpisode recorded.
--- OUTSIDE RECORDS SUMMARY | 2025-01-13 00:52 | XMS_ITS | Patient Health Record ---
Author Organization [facility] Address [address] [place] [address] Care Team Providers Care Live In Housekeeper Nanny Name Role Phone Jose Wallace Unavailable [phone] REASON FOR REFERRAL No Information PLAN OF TREATMENT No Information Insurance Providers Payer Name Payer Address Payer Phone Subscriber Number Group Number Insured Name Patient Relationship to Insured Coverage Start Date Coverage End Date [employer] [address] [place] [address] [phone] [id number] [employer], Other
[2025-01-13 09:20] VITALS: BP 141/95; PULSE 77; RESP 14; TEMP 36.6; O2SAT 100; BMI 31.1
[2025-01-13] MEDS: ACETAMINOPHEN 500 MG TABLET 1000 MG PO (09:20)
[2025-01-13] MEDS: LACTATED RINGERS 1,000 ML 30 ML IV CONT (09:20)
--- NOTE | 2025-01-13 09:30 | WPDHPUPDATE1 ---
History and Physical Update Update Date/Time: 01/13/25 09:30 History and Physical has been reviewed, including an updated exam of the patient. There are NO changes in the patient's condition. Risks, benefits, and alternatives have been discussed and questions answered. Patient agrees to proceed with procedure.
[2025-01-13] MEDS: Please enter patient height and weight for medication dosing 1 EACH XX (09:33)
[2025-01-13 09:35] LABS: BEDSIDEPREGUCG Negative (Negative)
--- NOTE | 2025-01-13 09:37 | P.PNAN_ITS ---
Anes - Initial Pre Proc Eval Procedure: Operation Date: 01/13/25 10:00 Proposed Procedures p Hysteroscopy Dilation and Curettage with Marilin Endometrial Ablation - Callum Dos Santos MD Date/Time: 01/13/25 09:37 Surgeon: Callum Dos Santos MD Pre Op Diagnosis: Menorrhagia Patient Data Age: 39 Gender: F Height: 1.7 m Weight: 90.1 kg Last Vital Signs Temp 97.8 F 01/13/25 09:20 Pulse 77 01/13/25 09:20 Resp 14 01/13/25 09:20 BP 141/95 H 01/13/25 09:20 Pulse Ox 100 01/13/25 09:20 O2 Del Method Room Air 01/13/25 09:20 Allergies Allergy/AdvReac Type Severity Reaction Status Date / Time No Known Allergies Allergy Verified 01/13/25 09:33 Home Medications ?Medication ?Instructions ?Recorded ?Confirmed ?Type No Home Medications 11/04/24 01/03/25 History Laboratory Tests 01/13/25 09:00 POC Urine HCG, Qual Negative (Negative) Patient hx anesthesia problems: none Family hx anesthesia problems: none Results Review: All pre-operative results and documents have been reviewed as part of the pre- operative evaluation. [facility] Past Medical History Medical History (Updated 01/13/25 @ 09:37 by Noah Carlisle Jr., CRNA) Menometrorrhagia Obesity Surgical History Surgical History H/O cervical spine surgery History of tubal ligation History of section Social History Social History Smoking status: Never smoker Second hand tobacco smoke exposure: No Alcohol intake: current Drinks per week: 5 Substance use: never Substance use type: does not use Living arrangements: with family Gender identity (if verbalized by the patient): Female Spiritual care concerns: No Anes - Eval Final PreProcedure Day of Procedure 01/13/25 09:37 Patient weight: obese Heart: regular rate and rhythm Lungs: clear to auscultation Airway: Mallampati scale class II Neurological: alert and oriented Last oral intake: >/= 8 hours ASA classification: II Emergent: no Anesthetic plan: proceed Anesthesia type and monitoring: general GIVS and standard monitoring Results Review: All pre-operative results and documents have been reviewed as part of the pre- operative evaluation. Informed Consent: The patient's anesthetic plan and its attendant risks and benefits were discussed with the patient/family/POA. Questions were solicited and answers provided to the satisfaction of the patient/family/POA.
[2025-01-13] MEDS: ceFAZolin 2 GM/D5W 50 ML 2 GM/50 ML BAG IVPB (09:45)
[2025-01-13] MEDS: LIDOCAINE 1% LOCAL INJ 10 ML VIAL INFILTRATE (10:06)
[2025-01-13 10:24] VITALS: BP 116/73; PULSE 86; RESP 20; O2SAT 99
--- NOTE | 2025-01-13 10:27 | W.PM.PROC2 ---
Procedure Note - Detailed Date of Procedure 01/13/25 Pre-op Diagnosis Menorrhagia Post-op Diagnosis Same Procedure Performed Hysteroscopy with dilation and Marilin endometrial ablation Surgeon Callum Dos Santos MD Anesthesia MAC and Local Indications Menorrhagia Findings Uterus sound to 10 cm, cervical length 4.5 cm, uterine length 5.5cm, good eschar post ablation Description of Procedure After informed consent was obtained patient was taken to the operating room and adequate IV sedation was administered. Attention was turned to the vagina. Speculum was inserted. Single-tooth tenaculum placed on the anterior lip of the cervix. 10 cc of 1% lidocaine was injected at the cervical vaginal interface at the 258 and 10 position. The uterus was sounded to 10 cm. The cervix was dilated to an 8 Vivar dilator. The cervical length was 4.5 . The hysteroscope was inserted into the cavity. The findings were a normal uterine cavity. The hysteroscope was removed. The Marilin ablation instrument was inserted into the cavity. Cavity assessment was performed and confirmed intact. The ablation was enabled. After 120 seconds the Marilin stopped. The ablation instrument was removed. The hysteroscope was inserted and there was noted to be good eschar with the cavity. The hysteroscope was removed the single-tooth tenaculum was removed hemostasis was noted at the tenaculum site. Sponge count correct. The patient taken to recovery in stable condition. Estimated Blood Loss 5 Urine Output 500 Drains No Packing No Pathology None sent Complications No immediate complications Condition Stable Disposition Observation [facility] Billing Surgery - Charge Forward: Surgery Billing
[2025-01-13] MEDS: oxyCODONE HCL (*CRX) 5 MG TAB IR PO (10:46)
[2025-01-13 10:50] VITALS: BP 114/74; PULSE 72; RESP 20
[2025-01-13] MEDS: fentaNYL CITRATE INJ (*CRX) 100 MCG/2 ML VIAL 25 MCG IV PUSH (11:07)
[2025-01-13 11:20] VITALS: BP 125/78; PULSE 65; RESP 20
== END 2025-01-13 11:25 | disposition home or self-care (01) ==
PROVIDERS: Visit Provider Obstetrics & Gynecology
PROC: 0U5B8ZZ Destruction of Endometrium, Via Natural or Artificial Opening Endoscopic (ICD-10-PCS; CPT 58563; principal; 2025-01-13 10:00)
DX: N92.0 Excessive and frequent menstruation with regular cycle (principal); E66.9 Obesity, unspecified; Z68.31 Body mass index [BMI] 31.0-31.9, adult
CPT/HCPCS: 58563; A9270; J0690; J2003; J2250; J2704; J3010; J7120